=== PATIENT | male | born 1960 | race Caucasian/White ===

== ENCOUNTER → 2020-04-12 10:55 | Outpatient (CLI) | payer BC, SELFPAY | PROVIDERS: PCP Family Medicine | DX: Z11.59 Encounter for screening for other viral diseases (principal) | CPT/HCPCS: 87635; G2023; U0003 ==

== ENCOUNTER 2023-11-09 15:05 | Emergency (ER) | payer BC, SELFPAY ==
[2023-11-09 15:07] VITALS: BP 138/87; PULSE 88; RESP 14; TEMP 37.1; O2SAT 98; BMI 27.1
--- NOTE | 2023-11-09 15:39 | EDS_ITS ---
<Statement entered by Tasneem Perez MD - 11/09/23 22:18> . HPI <Iraida Valero RN - Last Filed: 11/09/23 22:21> History of Present Illness Chief Complaint: GI Bleed Informant: patient and spouse/S.O. Onset/Context/Timing Onset: Yesterday Context: Sudden Onset Timing: Continuous Narrative Narrative: Patient is a 63-year-old male who presented with his for black stools beginning last p.m. with 1 episode this a.m. patient with exploratory laparotomy left colectomy and omentectomy for colon cancer on October 29, 2023 at [facility]. Discharged November 05, 2023 patient reports diarrhea since surgery, contacted surgeon at [facility] regarding black stools and was referred to the local ED. Denies dizziness lightheadedness weaknes, nausea or vomiting. Denies pain. Prior similar symptoms: No Recent Illness/Hospitalization: Yes PFSH <Iraida Valero RN - Last Filed: 11/09/23 22:21> PFSH Medical History (Updated 11/09/23 @ 17:[address] Tasneem Perez MD) Cancer of descending colon High cholesterol Hypertension Neuropathy Allergy/AdvReac Type Severity Reaction Status Date / Time acetaminophen [From Percocet] Allergy Hives Verified 11/09/23 15:07 oxycodone [From Percocet] Allergy Hives Verified 11/09/23 15:07 Penicillins Allergy Hives Verified 11/09/23 15:07 Surgical History (Updated 11/09/23 @ 17:[address] Tasneem Preez MD) S/P left colectomy Social History Smoking Status: Never smoker ROS <Iraida Valero RN - Last Filed: 11/09/23 22:21> ROS ED Constitutional Constitutional ED: Reports other Details: Reports 13 pound weight loss since surgery. Reports increased appetite since yesterday. ; Denies chills, fever(s), subjective or sweats Cardiovascular Cardiovascular: Denies chest pain Respiratory/Chest Respiratory/Chest: Denies cough or dyspnea Gastrointestinal Gastrointestinal: Reports abdominal pain, diarrhea and melena; Denies nausea or vomiting <Dr. Tasneem Perez MD - Last Filed: 11/09/23 17:59> ROS ED Musculoskeletal Musculoskeletal: Denies back pain Neurologic Neurologic: Denies headache(s) Psychiatric Psychiatric: Denies anxiety or depression Allergic/Immunologic Allergic/Immunologic ED: Denies mouth swelling or tongue swelling EXAM <Iarida Valero RN - Last Filed: 11/09/23 22:21> Physical Exam Const Vital Signs: 11/09/23 15:07 11/09/23 17:47 Temperature 98.7 F Temperature Source Temporal Pulse Rate 88 74 Respiratory Rate 14 18 Blood Pressure 138/87 H Blood Pressure Mean 104 Pulse Ox 98 99 Oxygen Delivery Method Room Air Positive well nourished and well developed General Appearance ED: well developed HEENT Reports moist mucous membranes Neck no lymphadenopathy Chest Wall inspection of chest normal Chest: other Resp normal respiratory effort and clear to auscultation bilaterally Cardio regular rate and regular rhythm GI non-tender and non-distended Auscultation: normoactive bowel sounds Palpation: soft; Negative for tender Extremity normal to inspection Neuro oriented x3 and no sensory deficits noted Sensorium / Orientation: alert Motor Exam: strength 5/5 throughout Skin no wounds Skin Narrative: Midline abdominal incision with denice intact no redness, edema, or drainage noted General Skin Exam: elasticity normal <Dr. Tasneem Perez MD - Last Filed: 11/09/23 17:59> Physical Exam Const Vital Signs: 11/09/23 15:07 11/09/23 17:47 Temperature 98.7 F Temperature Source Temporal Pulse Rate 88 74 Respiratory Rate 14 18 Blood Pressure 138/87 H Blood Pressure Mean 104 Pulse Ox 98 99 Oxygen Delivery Method Room Air MDM <Iraida Valero RN - Last Filed: 11/09/23 22:21> MDM Lab Data Labs: Laboratory Results - last 24 hr 11/09/23 15:39 WBC 8.7 RBC 4.49 L Hgb 12.9 L Hct 38.0 L MCV 84.6 MCH 28.7 MCHC 33.9 RDW Std Deviation 39.6 RDW Coeff of Megan 12.9 Plt Count 439 MPV 8.6 Immature Gran % (Auto) 0.300 Neut % (Auto) 61.9 Lymph % (Auto) 21.8 Coos % (Auto) 5.8 Eos % (Auto) 8.5 H Baso % (Auto) 1.7 H Absolute Neuts (auto) 5.4 Absolute Lymphs (auto) 1.89 Nucleated RBC % 0 PT 13.4 INR 1.0 APTT 27.7 Sodium 140 Potassium 3.2 L Chloride 112 H Carbon Dioxide 23.0 Anion Gap 5 BUN 26 H Creatinine 0.77 Estim Creat Clear Calc 101.39 Est GFR (MDRD) Af Amer 131 Est GFR (MDRD) Non-Af 108 BUN/Creatinine Ratio 33.8 H Glucose 113 H Calcium 9.0 Radiography Diagnostic Testing: Clinical Impression(s) from Imaging Studies Abdomen/Pelvis CT 11/09/23 16:03 IMPRESSION: 1. Pneumoperitoneum likely related to recent surgery. 2. Distended loop of large bowel may represent postop ileus or an element of obstruction at the anastomosis. 3. Cholelithiasis. Electronically Signed: Juan David Viveros MD at 16:48 EST Reading Location ID and State: [address] [place] [address] Tel , Service support , Differential Diagnosis Abdominal Pain: Bowel obstruction <Dr. Tasneem Perez MD - Last Filed: 11/09/23 17:59> MDM MDM Narrative Medical decision making narrative: IV line initiated. Labwork obtained to evaluate for leukocytosis, anemia, and electrolyte derangement. CT scan of the abdomen pelvis with IV contrast obtained to evaluate for bowel obstruction or any complications at the anastomosis site. History & Record Review Discussion w/independent historian: Patient and Significant other Lab Data Attestation: I reviewed the patient's lab results. Labs: Laboratory Results - last 24 hr 11/09/23 15:39 WBC 8.7 RBC 4.49 L Hgb 12.9 L Hct 38.0 L MCV 84.6 MCH 28.7 MCHC 33.9 RDW Std Deviation 39.6 RDW Coeff of Megan 12.9 Plt Count 439 MPV 8.6 Immature Gran % (Auto) 0.300 Neut % (Auto) 61.9 Lymph % (Auto) 21.8 Coos % (Auto) 5.8 Eos % (Auto) 8.5 H Baso % (Auto) 1.7 H Absolute Neuts (auto) 5.4 Absolute Lymphs (auto) 1.89 Nucleated RBC % 0 PT 13.4 INR 1.0 APTT 27.7 Sodium 140 Potassium 3.2 L Chloride 112 H Carbon Dioxide 23.0 Anion Gap 5 BUN 26 H Creatinine 0.77 Estim Creat Clear Calc 101.39 Est GFR (MDRD) Af Amer 131 Est GFR (MDRD) Non-Af 108 BUN/Creatinine Ratio 33.8 H Glucose 113 H Calcium 9.0 Radiography Diagnostic Testing: Clinical Impression(s) from Imaging Studies Abdomen/Pelvis CT 11/09/23 16:03 IMPRESSION: 1. Pneumoperitoneum likely related to recent surgery. 2. Distended loop of large bowel may represent postop ileus or an element of obstruction at the anastomosis. 3. Cholelithiasis. Electronically Signed: Juan David Viveros MD at 16:48 EST , Treatment and Re-Evaluation :: CBC reveals normal white count 8.7. Hemoglobin is 12.9. On November 05 hemoglobin was 13.8. Coags unremarkable. Chemistry studies significant for slightly low potassium at 3.2. BUN is 26. Glucose is normal at 113. CT scan of the abdomen and pelvis shows pneumoperitoneum likely related to recent surgery. Distended loop of large bowel may represent a postop ileus or an element of obstruction at the anastomosis site. On repeat evaluation patient continues to rest comfortably. He states his upper bowel just recently started with good function over the last day or 2. I think he has a resolving ileus. He will closely monitor his symptoms and ensure that he is passing gas/stool. He is encouraged to return for any worsening symptoms or concerns. He has a follow-up with his surgeon next Sunday. Discharge Plan Triage Chief Complaint: GI Bleed ED Provider: Tasneem Perez Dx/Rx/DC Orders Clinical Impression: GI bleed Instructions: ED Lower GI Bleeding (Stable) Primary Care Provider: Faheem Mcbride Referrals: Faheem Mcbride MD [Primary Care Provider] - Activity Restrictions/Additional Instructions: As discussed, your blood counts are stable from your recent hospital admission. Your CT scan shows probable ileus from your recent surgery. Please ensure that you are continuing to pass gas and stool. Monitor for worsened bleeding. Please return for any concerns. Follow-up with your surgeon on Sunday as discussed. Disposition Disposition: Home, Self Care Discharge Date/Time: 11/09/23 17:49
[2023-11-09 15:44] LABS: Absolute Lymphocyte Count 1.89 X10^3/uL (0.83-4.51); Absolute Neutrophil Count 5.4 X10^3/uL (2.0-7.7); Basophil# 0.15 X10^3/uL; Basophil% 1.7 % (0-1); Eosinophil# 0.74 X10^3/uL; Eosinophils% 8.5 % (0-5); Hemoglobin 12.9 g/dL (13.0-16.5); Lymphocyte # 1.89 X10^3/ul (0.83-4.51); Lymphocyte % 21.8 % (19-41); Mean Corp Hgb Conc 33.9 g/dL (32-36); Mean Corpuscular Hgb 28.7 pg (27.0-32.0); Mean Corpuscular Volume 84.6 fL (80-94); Mean Platelet Vol. 8.6 fl (6.2-12.0); Monocyte% 5.8 % (0-10); NRBC Flagged by Analyzer 0 % (0-5); Neutrophil # 5.36 X10^3/uL (2.7-7.7); Neutrophil % 61.9 % (47-70); Platelet Count 439 K/mm3 (150-450); RBC Distribution Width CV 12.9 % (11.6-14.6); RBC Distribution Width SD 39.6 fl (35.1-43.9); Red Blood Count 4.49 M/mm3 (4.6-6.2); White Blood Count 8.7 K/mm3 (4.4-11.0)
[2023-11-09] MEDS: 0.9% Normal Saline (1000mL) 1,000 ML 150 ML IV (15:47)
[2023-11-09 15:58] LABS: Prothrombin Time (Protime)PT. 13.4 SECONDS (11.7-14.9)
[2023-11-09 15:59] LABS: Partial Thromboplast Time 27.7 Seconds (24.1-36.2)
[2023-11-09 16:03] LABS: Anion Gap 5 (5-15); BUN 26 mg/dL (7-18); BUN/Creat Ratio 33.8 RATIO (10-20); Chloride 112 mmol/L (98-107); Creatinine, Serum 0.77 mg/dL (0.70-1.30); EST Glomerular Filtration Rate 108 mL/min (>60); Est Glom Filt Rate - Afr Amer 131 mL/min (>60); Estimated Creatinine Clearance 101.39 ml/min; Glucose 113 mg/dL (74-106); Potassium 3.2 mmol/L (3.5-5.1); Sodium Level 140 mmol/L (136-145)
--- NOTE | 2023-11-09 16:03 | CT_ITS ---
EXAM: CT ABDOMEN AND PELVIS WITH INTRAVENOUS CONTRAST CLINICAL INDICATION: GI bleed, recent partial colectomy TECHNIQUE: Helically acquired images were obtained of the abdomen and pelvis with intravenous contrast. This CT exam was performed using one or more of the following dose reduction techniques: automated exposure control, adjustment of the mA and/or kV according to patient size, and/or use of iterative reconstruction technique. CONTRAST: IV 100mL Isovue-300 COMPARISON: No relevant prior studies available. FINDINGS: LOWER THORAX: Normal. Lung bases are clear. No cardiomegaly. No pericardial effusion. ABDOMEN: LIVER: Normal. Homogeneous. No focal mass. GALLBLADDER AND BILE DUCTS: Calcified stone present within the gallbladder. PANCREAS: Normal. No focal cystic or solid mass. SPLEEN: Normal. Normal size without focal cystic or solid mass. ADRENALS: Normal. No nodules. KIDNEYS AND URETERS: Small bilateral renal cysts. Normal renal size and position. No hydronephrosis. STOMACH AND BOWEL: Surgical anastomosis of the large bowel noted at the level of the distal descending colon. Large bowel proximal to the anastomosis is quite dilated which may be due to postop ileus or an element of obstruction. PELVIS: APPENDIX: See below. BLADDER: Normal. REPRODUCTIVE: Unremarkable as visualized. No mass. ABDOMEN and PELVIS: INTRAPERITONEAL SPACE: Pneumoperitoneum which presumably is related to recent partial colectomy. No ascites or other fluid collection. BONES/JOINTS: Bilateral L5 spondylolysis noted with grade 2 spondylolisthesis. Advanced disc degeneration at L5-S1 and to a lesser degree at L4-5. SOFT TISSUES: Normal. No discrete abdominal or pelvic wall hernia. VASCULATURE: Normal. Abdominal aorta is non-dilated. LYMPH NODES: Normal. No enlarged lymph nodes. CT/Abdomen/Pelvis W IV Cont ONLY IMPRESSION: 1. Pneumoperitoneum likely related to recent surgery. 2. Distended loop of large bowel may represent postop ileus or an element of obstruction at the anastomosis. 3. Cholelithiasis. Electronically Signed: Juan David Viveros MD at 16:48 EST ,
[2023-11-09 17:47] VITALS: PULSE 74; RESP 18; O2SAT 99
--- OUTSIDE RECORDS SUMMARY | 2023-11-09 18:00 | XMS RPT_ITS | CCD ---
Author Name Unknown Address [id number] [place] [address] Organization [facility] Care Team Providers Care Search Engine Optimization Analyst Name Role Phone DENIS SHANKS Admitting Unavailable DENIS SHANKS Attending Unavailable DENIS SHANKS Primary Care Unavailable FAHEEM MCBRIDE Unavailable PROVIDER, UNKNOWN Consulting Unavailable PROVIDER, UNKNOWN Consulting Unavailable PROVIDER, UNKNOWN Consulting Unavailable Faheem Mcbride MD Primary Care Provider Faheem Mcbride MD Primary Care Provider Faheem Mcbride MD Primary Care Provider FAHEEM MCBRIDE Primary Care Unavailable GIL, SHAFIA Attending Unavailable GIL, SHAFIA Referring Unavailable ARMANI HERRING Referring Unavailable GIL, SHAFIA Attending Unavailable BROWN, FAHEEM F Primary Care Unavailable BROWN, FAHEEM F Primary Care Unavailable SELF, SELF Referring Unavailable ARMANI HERRING Attending Unavailable BROWN, FAHEEM F Primary Care Unavailable ARMANI HERRING Attending Unavailable GIL, SHAFIA Referring Unavailable BROWN, FAHEEM F Primary Care Unavailable ARMANI HERRING Referring Unavailable ARMANI HERRING Attending Unavailable BROWN, FAHEEM F Referring Unavailable BROWN, FAHEEM F Primary Care Unavailable GIL, SHAFIA Attending Unavailable BROWN, FAHEEM F Primary Care Unavailable ABDI POTTER Attending Unavailable ARMANI HERRING Referring Unavailable BROWN, FAHEEM F Primary Care Unavailable ARMANI HERRING Attending Unavailable GIL, SHAFIA Referring Unavailable BROWN, FAHEEM F Primary Care Unavailable CARROLL HARKINS Attending Unavailable ARMANI HERRING Referring Unavailable BROWN, FAHEEM F Primary Care Unavailable ARMANI HERRING Referring Unavailable ARMANI HERRING Admitting Unavailable ARMANI HERRING Attending Unavailable HUI APONTE Attending Unavailable BROWN, FAHEEM F Primary Care Unavailable ARMANI HERRING Referring Unavailable FAHEEM MCBRIDE Primary Care Unavailable KEVIN BONNER Attending Unavailable KEVIN BONNER Referring Unavailable FAHEEM MCBRIDE Primary Care Unavailable KEVIN BONNER Attending Unavailable KEVIN BONNER Referring Unavailable Faheem Mcbride MD Unavailable [facility] Unavailable Mauricio BESS, Dr. Allison ([place] [facility]) A Unavail able Dr. Román Martínez MD Unavailable [phone] [facility] Unavailable Darryn ESCALANTE, Rossy Unavailable Unavailable [place] CRACKLING PRESS OPERATOR, Michelle Unavailable Nikolai CRACKLING PRESS OPERATOR, Perla Unavailable Unavailable Jh CRACKLING PRESS OPERATOR, Dede E Unavailable Unavailable Rivera CRACKLING PRESS OPERATOR, Mckenzie Unavailable Unavailable Brad, Maday C Unavailable Unavailable Stanislaw CRACKLING PRESS OPERATOR, Bebe Unavailable Unavailable Dany ESCALANTE, Tiara Thornton Unavailable Unavaila ble Jose CRACKLING PRESS OPERATOR, Aroldo Unavailable Unavailable Stack CRACKLING PRESS OPERATOR, Karlie Unavailable Unavailable Mutersbaugh CRACKLING PRESS OPERATOR, Keturah K Unavailable Unavai lable Camille CRACKLING PRESS OPERATOR, Kailee M Unavailable Unavailab le Adriano CRACKLING PRESS OPERATOR, Katharine Bond Unavailable Unavailab bulmaro Almaraz MA, Bebe Unavailable Unavailable Franerd CRACKLING PRESS OPERATOR, Tasneem Unavailable Unavaileyal Mosley CRACKLING PRESS OPERATOR, Odalis Marie Unavailable Unavaila ble Zaugg CRACKLING PRESS OPERATOR, Rosita Unavailable Unavailable Unavailable Unavailable Allergies Allergy Classification Reported Allergen(s) Allergy Type Date of Onset Reaction(s) Facility (1 source) Acetaminophen / oxyCODONE Drug Allergy [facility] (1 source) Penicillins Drug allergy (disorder) [facility] (18 sources) Acetaminophen / oxyCODONE Drug Allergy 5 [facility] (16 sources) Penicillins Propensity to adverse reactions to drug 5 [facility] (2 sources) Penicillin G Drug Allergy [facility] Medications Current Medications Medication Drug Class(es) Dates Sig (Normalized) Sig (Original) amLODIPine 10 mg oral tablet (18 sources) Dihydropyridine [employer] Zoe Start: 07-05-2023 take 1 tablet by mouth at bedtime Norvasc 10 mg tablet ; 1 Tablet at bedtime for 90 days Quantity: 90 {Tablet} Refills: 3 Ordered: 05-Jul-2023 MD Faheem Mcbride Start: 05-Jul-2023 atorvastatin 20 mg oral tablet (20 sources) HMG-CoA Reductase Inhibitor Start: 07-05-2023 atorvastatin 20 mg tablet ; 1 (one) Tablet qhs for 0 days Quantity: 90 {Tablet} Refills: 3 Ordered: 05-Jul-2023 MD Faheem Mcbride Start: 05-Jul-2023 Completed/Discontinued Medications Medication Drug Class(es) Dates Sig (Normalized) Sig (Original) aspirin 81 mg delayed release oral tablet (4 sources) Platelet Aggregation Inhibitor, Nonsteroidal Anti-inflammatory Drug take 1 tablet by mouth once daily Aspir-Low 81 MG Oral Tablet Delayed Release ; 1 daily (81 MG) Status: Inactive Problems Active Problems Problem Classification Problem Date Documented Da te Episodic/Chronic Allergic reactions (2 sources) Contact dermatitis; Translations: [Unspecified contact dermatitis, unspecified cause] 02-04-2019 Episodic Cancer of colon (20 sources) Malignant tumor of descending colon; Translations: [Malignant neoplasm of descending colon] Onset: 03-01-2018 Resolved: 11-13-2019 11-13-2018 Chronic Past or Other Problems Problem Classification Problem Date Documented Date Episodic/Chronic Cancer of colon (20 sources) History of malignant neoplasm of colon; Translations: [Personal history of other malignant neoplasm of large intestine] Onset: 11-12-2019 11-12-2019 Episodic Mood disorders (16 sources) Mood disorders Onset: 02-09-2021 Resolved: 07-31-2023 02-09-2021 Unclassified (2 sources) Well adult male - The patient feels well with no complaints, has good energy level and is sleeping well. The patient has a balanced diet. The patient exercises daily. The patient sleeps 6 hours per night. Note for Well adult male : reviewed by [facility] 01-04-2023 Unclassified (2 sources) Well adult male - The patient feels well with no complaints, has good energy level and is sleeping well. The patient has a balanced diet and takes no supplemental vitamins & iron. The patient exercises weekly (5-6 days). The patient sleeps 6 hours per night. Note for Well adult male : Has no concerns for today.Needs refills of Amlodipine and Atorvastatin reviewed by [facility] 12-29-2021 Unclassified (2 sources) Eye Symptoms - The onset of the eye symptoms has been acute and has been occurring in an increasing pattern for 1 month. The course has been worsening. The eye symptoms are described as moderate and involve the right eye (lower lid). The symptoms are described as pain. There has been no associated itching. Note for Eye symptoms : Has been using warm compresses. reviewed by [facility] 12-13-2021 Unclassified (2 sources) Well adult male - The patient feels well with no complaints, has good energy level and is sleeping well. The patient has a balanced diet and takes no supplemental vitamins & iron. The patient exercises weekly (5 times/weekly). The patient sleeps 6 hours per night. Note for Well adult male : Has no concerns for today. 12-24-2020 Unclassified (2 sources) Well Adult, male - The patient feels well with no complaints, has good energy level and is sleeping well. The patient has a balanced diet and takes no supplemental vitamins & iron. The patient exercises 3 - 4 times per week (walks/runs on treadmill). The patient sleeps 6 hours per night. Note for Well Adult, male : reviewed by [facility] 12-17-2019 Unclassified (2 sources) Erectile dysfunction - Note for Erectile dysfunction : Patient would like to discuss with Dr. Mcbride.Patient had body scan done recently for previous history of colon cancer. reviewed by [facility] 03-28-2019 Unclassified (2 sources) Rash - The onset of the rash has been acute and has been occurring in a persistent pattern for 1 day (started last evening). The course has been increasing. The rash is characterized as red. The rash was first seen on the lower extremity (both feet). There has been associated pain. Note for Rash : Has a couple of blisters on feet. No new exposures that he knows of . He did have a body scan yesterday as part of cancer work up and had some IV contrast. 02-04-2019 Unclassified (2 sources) Well adult male - The patient feels well with minor complaints (currently taking chemo medication, has two more weeks left.). The patient has a balanced diet and takes no supplemental vitamins & iron. The patient exercises weekly (4-5x/week). The patient sleeps 6 (6-7 hours a night) hours per night. Note for Well adult male : NICHO 06/28/2018States that he had recent cold, continues to have lingering cough. Would like refills today. reviewed by [facility] 11-08-2018 Unclassified (2 sources) Hypertension - The onset of the hypertension has been gradual. The hypertension has been occurring in a continuous pattern for 10 days. The course has been constant. The JNC classification is Stage 1 hypertension - 140-159 or 90-99 The symptoms include headache. Note for Hypertension : Pt started Chemo last week for colon cancer and after that BP has been elevated. 06-28-2018 Unclassified (2 sources) HTN/Cholesterol - Pt here for routine thn and cholesterol. Denies any chest pain , sob, or visual problems. States is doing well. Needs refill today. 07-29-2010 Results Test Name Value Interpretation Reference Range Facil ity Vital Signs Date Time Vital Sign Value Performing Clinician Faci lity 08-08-2023 08:54-0400 Body height 177.8 cm Armani Herring MD Work Phone: [facility] 08-08-2023 08:54-0400 Body mass index (BMI) [Ratio] 28.5 kg/m2 Armani Herring MD Work Phone: [facility] 08-08-2023 08:54-0400 Body temperature 98.29 [degF] Armani Herring MD Work Phone: [facility] 08-08-2023 08:54-0400 Body weight 90.08 kg Armani Herring MD Work Phone: [facility] 08-08-2023 08:54-0400 Diastolic blood pressure 72 mm[Hg] Armani Herring MD Work Phone: [facility] 08-08-2023 08:54-0400 Heart rate 82 /min Armani Herring MD Work Phone: [facility] 08-08-2023 08:54-0400 Respiratory rate 16 /min Armani Herring MD Work Phone: [facility] 08-08-2023 08:54-0400 SaO2% (BldA) [Mass fraction] 98 % Armani Herring MD Work Phone: [facility] Encounters Encounter Date Encounter Type Care Provider Facility Start: 11-07-2023 End: 11-07-2023 Telephone follow-up Faheem Mcbride MD Work Phone: [employer] Start: 10-29-2023 Evaluation and management of inpatient FAHEEM MCBRIDE Facility:[facility] Start: 08-08-2023 ambulatory FAHEEM MCBRIDE Facility: [facility] Start: 08-08-2023 End: 08-08-2023 Office outpatient visit 15 minutes Armani Herring MD Work Phone: Division of Colon & Rectal Surgery Procedures Date Procedure Procedure Detail Performing Clinician Start: 07-31-2023 Follow-up visit Follow-up ALEKSANDRA GIL Start: 07-26-2023 End: 07-26-2023 Screening for malignant neoplasm of large intestine Tiara Saenz RN Plan of Treatment Date Care Activity Detail Author Start: 09-12-2031 Tetanus vaccination TETANUS [facility] Start: 07-26-2025 Screening for malign ant neoplasm of colon COLONOSCOPY [facility] Start: 05-18-2024 Colonoscopy COLONOSCOPY [facility] Start: 05-18-2024 Screening for malign ant neoplasm of colon COLONOSCOPY [facility] Start: 01-16-2024 Patient encounter procedure Medical; PHYSICAL - AWV [facility]. Start: 16-Jan-2024 7:20 MD Faheem Mcbride Appointment Request [facility]. Start: 01-01-2024 Nursing evaluation o f patient and report Medical; Nurse visit - fasting labs - [facility] [employer] [facility] Start: 01-Jan-2024 8:20 NURSE, FLOAT Appointment Request [facility]. Start: 08-08-2023 End: 08-08-2023 Patient encounter procedure 08/08/2023 9:15 AM EDT Office Visit Division of Colon & Rectal Surgery [address] [place] [phone] Aramni Herring MD [address] [phone] Division of Colon & Rectal Surgery Start: 07-31-2023 End: 07-31-2023 Patient encounter procedure Division [facility] Surgery at [facility] Start: 07-26-2023 End: 07-26-2023 Patient encounter procedure 07/26/2023 12:30 PM EDT Appointment [facility] [address] [facility] [address] [place] [address] Armani Herring MD [address] [phone] [facility] Start: 07-13-2023 End: 07-13-2023 Patient encounter procedure 07/13/2023 11:20 AM EDT Office Visit Division of Medical Oncology [address] [phone] Aleksandra Gil MD [address] [place] [address] Division of Medical Oncology Start: 07-11-2023 End: 07-11-2023 Patient encounter procedure 07/11/2023 8:30 AM EDT Office Visit Division of Colon & Rectal Surgery [address] [phone] Armani Herring MD [address] [phone] Division of Colon & Rectal Surgery Start: 06-21-2023 End: 12-20-2023 CEA CEA Lab Routine Malignant neoplasm of ascending colon Expected: 06/21/2023, Expires: 12/20/2023 [facility] Immunizations Immunization Date Immunization Notes Care Provider Fa cility 07-05-2023 influenza, injectabl e, quadrivalent, preservative free Faheem Mcbride MD Work Phone: [facility] [employer] [employer] Payers Date Payer Category Payer Unknown [id number] 2017 Unknown [id number] 1960 Unknown [id number] 1960 Unknown [id number] 2.16. [id number] 1960 Unknown [id number] 2.16. [id number] 1960 Unknown [id number] 2.16. [id number] 1960 Unknown [id number] 2.16 [id number] 1960 Unknown [id number] 2.16. [id number] 1960 Unknown [id number] 2.16. [id number] 1960 Unknown [id number] 2.16. [id number] 1960 Unknown [id number] 2.16 [id number] 1960 Unknown [id number] 2.16. [id number] 1960 Unknown [id number] 2.16. [id number] 1960 Unknown [id number] 2.16. [id number] 1960 Unknown [id number] 2.16. [id number] 1960 Unknown [id number] 2.16. [id number] Social History Date Type Detail Facility Start: 02-05-2015 End: 06-19-2023 Tobacco smoking status NHIS Never smoked tobacco [facility] Start: 02-05-2015 End: 06-19-2023 Tobacco use and exposure Smokeless tobacco non-user [facility] Start: 08-24-2021 End: 08-08-2023 Alcohol intake Current drinker of alcohol (finding) [facility] Start: 08-24-2021 End: 07-31-2023 Alcohol intake [facility] Start: 08-23-2020 History SDOH Alcohol Frequency 2 [facility] Start: 11-12-2019 History SDOH Alcohol Comment socially [facility] Start: 11-12-2019 History SDOH Physica l Activity DPW 6 [facility] Start: 11-12-2019 End: 08-23-2020 History SDOH Physical Activity MPS 5 [facility] Start: 08-23-2020 History SDOH Food Worry 1 [facility] Start: 1960 Sex Assigned At Not on file [facility] Start: 12-09-2022 End: 12-19-2022 Exposure to SARS-CoV-2 (event) Not sure [facility] Start: 08-23-2020 End: 07-31-2023 Alcohol Use Disorder Identification Test - Consumption [AUDIT-C] [facility] How often to you hav e a drink containing alcohol? Monthly or less [facility] Average Number of Drinks Not on file [facility] (I/We) worried gavi er (my/our) food would run out before (I/we) got money to buy more. Never true [facility] Start: 01-30-2018 Gender identity Identifies as male gender (finding) [facility] Alcohol Use: Alcohol Use: ; Moderate alcohol use. [facility] Exercise History: Exercise Histo ry: ; Moderate. [facility] [employer] Tobacco Use: Tobacco Use: ; N ever smoker. [facility]. [facility]. Work Phone: Moderate [facility] [employer]. Work Phone: 6 x week [employer] [facility] [employer]. Work Phone: Moderate alcohol use [facility] [facility]; [employer]. Work Phone: Clinical Notes 02-22-2022 to 08-08-2023 Patient InstructionsJUANITA Mercado - 07/31/2023 1:00 PM Josafat Potter MD - 07/31/2023 1:00 PM JUANITA Cheung - 07/31/2023 10:20 AM EDTPatient Instructions Note Date & Type Note Facility 08-08-2023 Instructions Tasneem Bennett RN - 08/08/2023 9:15 AM EDT Pre-Operative Bowel Preparation [facility] 2022 A bowel prep is done to prepare the bowel for surgery or a procedure. Its purpose is to clear out the bowel of all solid matter. Please follow these instructions. Begin the bowel prep on the day before your scheduled surgery. Prescriptions will be sent to your pharmacy for: Dulcolax 20 mg (available over the counter) MiraLAX 238 g (available over the counter) Metronidazole or Erythromycin (if Metronidazole allergic) Neomycin On the day before your surgery: Drink only clear liquids. You should not have any solid food or milk products until after your surgery. Do not drink any liquids that are red, orange or purple in color. You may drink as much of these liquids as you like. In fact, the more you drink, the better your prep and the better your body will tolerate the prep. Also, continue drinking clear fluids after you finish the prep (until midnight) will make it easier to place your IV on the morning of surgery. These clear liquids are allowed: Water Strained fruit juices with no pulp Popsicles Ice Soft drinks Gatorade (Lemon [place]ai[place] preferred) Clear broth or bouillon Jell-O Coffee or tea with no milk or cream Mukund-Aid (no red, orange or purple) Begin the bowel prep: Plan ahead so that you will have a bathroom nearby. You may need to get to the toilet right away. You will have several bowel movements through the day. They will become very watery. The bowels are clear or clean when there is only pale-yellow fluid without flecks of stool. Please follow the steps as directed starting at 11 AM on the day before your surgery. The steps will clean your bowel for surgery and help protect against infection. You may only consume CLEAR LIQUIDS twenty-four (24) hours prior to surgery. STEP 1 - 11 AM: Take all 4, 5 mg Bisacodyl (Dulcolax) tablets (20 mg total in 1 single dose) STEP 2 - 11 AM: Pour the entire 8.3 oz (238 g) bottle of Polyethylene Glycol (MiraLAX) powder into a large 64-ounce bottle of sports drink like Gatorade or PowerAde that is not red, orange, or purple in color. Lemon-te-moak is preferred. You may need to pour out a cup of the drink from the bottle into a glass to make room before pouring the powder into the bottle. Shake well. Drink entire contents (60 oz.) over 2 hours. STEP 3 - 1 PM: Take 2 , 500 mg Metronidazole (Flagyl) tablets and 2 , 500 mg Neomycin tablets STEP 4 - 2 PM: Take 2 , 500 mg Metronidazole (Flagyl) tablets and 2 , 500 mg Neomycin tablets STEP 5 - 9 PM: Take 2 , 500 mg Metronidazole (Flagyl) tablets and 2 , 500 mg Neomycin tablets STEP 6 - Before Bedtime: Take a shower and wash your hair and body as usual. Turn off shower. Apply a generous amount of the Hibiclens (chlorhexidine) wash directly onto your skin (We will supply you with the soap prior to your surgery). Lather your body from the neck down. Pay special attention to the area where the surgery will be. Leave the wash on for 5 minutes then rinse well in the shower. Do not discard the Hibiclens (chlorhexidine) wash after showering. You will need to use the same bottle in the morning. Do NOT apply lotion or anything onto skin after showering. Put on clean clothes. STEP 7 - Before Bedtime: - Drink 1 bottle of Ensure Pre-Surgery Clear Nutritional drink. STEP 8- Morning of Surgery: Repeat STEP 6 above. Apply a generous amount of the Hibiclens (chlorhexidine) wash directly onto your skin. Lather your body from the neck down. Pay special attention to the area where the surgery will be. Leave the wash on for 5 minutes then rinse well in the shower. Do NOT apply lotion or anything onto skin after showering. Put on clean clothes. You will likely have extra Hibiclens (chlorhexidine) wash leftover that you may continue to use when you return home after surgery. STEP 9 - Morning of Surgery: - Drink the second bottle of Ensure Pre-Surgery Clear Nutritional drink on the way to the hospital prior to your procedure. STEP 10 - Please bring this form with you to your procedure. The morning of your surgery: Do not eat or drink anything other than the Preoperative Nutrition drink supplied by your doctor or doctor s office. If you are to take your morning medicines, take with small sips of water only. Bring all medicines you usually take (in the original containers) to the hospital with you. Follow any other instructions you were given to prepare for your surgery. If you have any questions, call your surgeon s office. Nothing to eat or drink (NPO) after midnight except for certain medications (See medication guidelines that were given to you during you pre-op visit) and the Ensure Pre-Surgery clear nutrition drink (see information below for directions on this drink before surgery). * You will be given 2 bottles of Ensure Pre-Surgery clear nutrition drink today to take prior to surgery. What is Ensure Pre-Surgery clear nutrition drink, and what does it do? Surgery creates unique nutrition needs for your body. Ensure Pre-Surgery is formulated for those needs with carbohydrates and antioxidants to help your body recover after surgery. What is the drink important? Your healthcare provider has recommended this specialized Ensure nutrition drink to help your body prepare for, and recover from, surgery. It's important that you follow your doctor's nutrition recommendations to help with recovery. Pre-Surgery Carbohydrate-Loading Drinks have been shown to help patient recovery: Reduced nausea and vomiting after surgery Reduced pain after surgery Reduced time in the hospital When should I drink Ensure Pre-Surgery? We recommend you drink 1 bottle the night before surgery and drink 1 bottle the morning of your surgery up to 2 hours before surgery. This should be consumed quickly (in less than 5 minutes, rather than sipped over time). You should not have anything to eat or drink after midnight before surgery except your doctor's approved medications with a sip of water and this Ensure Pre-Surgery clear nutrition drink that should be consumed in the morning of surgery and finish it no later than 2 hours prior to surgery time. You should have nothing to eat or drink at all 2 hours prior to your surgery. What is Ensure Enlive? As you continue to recover from surgery, add Ensure Enlive to your diet. Ensure Enlive is the only advanced nutrition shake that has an All-in-One blend with 20 grams of protein, HMB, fiber, vitamins and minerals. Ensure Enlive helps rebuild muscle for strength and energy during recovery from surgery. Ensure Enlive has been clinically shown to help significantly improve health outcomes. Patient who drank Ensure Enlive twice daily saw improvements in nutritional status, weight gain, and vitamin D levels. If you are diabetic, then we recommend Glucerna Shake Hunger Smart (10 fluid oz.) instead of Ensure Enlive We are providing you with 2 bottles of Ensure Enlive (or Glucerna if you are diabetic) as a sample for you to use. This is available at all major retailers. Our recommendation is to use a nutritional supplement for 14 days before and 14 days after surgery as part of a healthy diet. This time frame before surgery is a general guideline. Please note: This is a general guideline. The time frame before surgery may be shorter if your surgery is scheduled sooner than 14 days. Please be aware that the Ensure Enlive is different than the Ensure Pre-Surgery Clear Nutrition Drink. Ensure Enlive should not be drank the morning of surgery. This should be consumed when recovering from your surgery. Exercise and Improve Your Strength Before Surgery Being in good physical shape can help you recover from surgery more quickly and with fewer problems. The stronger you are before surgery, the easier things will be for you after surgery. Exercise 30 minutes each day most days of the week. Walking in your neighborhood or on a treadmill, riding a bike, and strength training using light weights are all good options. Try to increase the amount of time or how hard you are exercising every few days to build up your strength and stamina. If you have a regular exercise routine most days of the week, stay with it until your surgery. Your surgeon may have you see a physical therapist (PT) before your surgery if you are not very active or you are weak. Stop Tobacco Use If you smoke or use other tobacco products you need to stop 4 weeks before the surgery. You also need to avoid tobacco use for up to 8 weeks after surgery to help your wound healing. Talk to your doctor about a smoking cessation program. You can also get help through: [facility], [place] Quit Line, [employer], [employer], Smokefree.gov website Stop Alcohol Use If you drink alcohol you will need to stop drinking 4 weeks before the surgery to reduce your risk of problems after surgery. Avoid alcohol up to 8 weeks after your surgery to help reduce your risk of infection and to help your wound heal more quickly. Talk to your doctor if you need help to stop alcohol use. You may also find these resources helpful:Alcoholics Anonymous (AA) http://www.aa.org/ Rethinking Drinking https://www.rethinkingdrinking.n [facility] hospitala.nih.gov/ National [place] of Alcohol Abuse and Alcoholism https://niaaa.nih.gov/ Bowman Albarran 368-672-1064 -Inpatient, partial hospitalization and outpatient services for teens or adults and their families, as well as educational programs are offered. PREOPERATIVE PAIN MANAGEMENT Most people can have some pain after surgery. Good pain control helps you feel comfortable so you can take deep breaths, walk and sleep better. This can help lower the risk of complications such as pneumonia or blood clots after surgery. Pain control starts before surgery Your doctor may prescribe medicine to help control your pain. Medications that you may be given before surgery include: Acetaminophen (Tylenol) Oxycodone Gabapentin Other types of medications that you may be given include anti-anxiety and anti-nausea medicines. Taking your pain medicine as ordered by your doctor will bring you the most relief as your body heals. Pain Relief Procedures In addition to medications, your surgeon and/or anesthesiologist may recommend a pain relieving procedure that will be done before you go into the operating room. Spinal Spinal analgesia is a procedure that can provide substantial pain relief after surgery. After cleaning and numbing the skin, a needle is advanced to the intrathecal space (it does not go into your spinal cord). After the needle is in the correct place, pain relieving medication is injected and then the needle is removed. Rare side effects from intrathecal injection may include: headaches, numbness or tingling in the lower legs, back soreness, bleeding, allergic reaction or infection. Epidural Epidural analgesia is another way to give pain medicine after surgery. A very thin plastic tube called an epidural catheter is placed in your back just before surgery. A small pump that delivers numbing medication is attached to the epidural catheter. The catheter is taped to your back and you will be able to move around in bed or walk. The epidural can stay in until 24-48 hours before discharge from the hospital. Rare side effects from an epidural may include: headaches, bleeding, allergic reaction or infection. Alternative Pain Relief Options If the previously mentioned pain relief procedures are not best for you, do not worry, there are alternative options to provide pain relief after surgery. Patient Controlled Analgesia (also known as a SUGAR CANE PLANTING EQUIPMENT OPERATOR) A SUGAR CANE PLANTING EQUIPMENT OPERATOR is a pain pump that could be used to help control pain. The pain medicine is ordered by your doctor. The pump is connected to your IV line and you can push a button when you have pain. This will give a small amount of pain medicine into your blood stream. You should be the only person to push the button. Your nurse will give you further instructions about this pump. Pain control without medication Many patients find that using non-drug therapy for pain control brings them additional relief. Options include, but are not limited to: Relaxation Exercise or movement Distraction, such as reading, watching a movie or lindsey Aromatherapy Heat or cold therapy (limit time of use) Talk to a staff member to learn more. documented in this encounter [facility] 07-31-2023 History of Presen t illness Narrative CC Right cystic renal mass HPI Maury Wagner is a 63 y.o. male with history of HTN, hyperlipidemia, stage IIIB colon cancer s/p resection (2018) and chemo with recent recurrence planned for resection. He is referred for evaluation of a cystic right renal mass seen on surveillance imaging. Patient has history of invasive adenocarcinoma of colon diagnosed in 2018, s/p laparoscopic L hemicolectomy 04/09/[address] Herring, pathology showed moderately differentiated adenocarcinoma w mucinous features, 4.8 cm with extension through muscularis propria, negative margins, 3/9 nodes positive. He completed adjuvant chemo with Xeloda in 2019. He has been on surveillance since then. CT A/P 06/05/22 incidentally showed a 1.2 cm x 1.6 cm cystic lesion in right lower pole kidney with progressive thickening of internal septation. CT A/P w/ contrast 06/06/23 showed the complex renal lesion measuring 1.7 cm x 1.7 cm with irregularly thickened internal septations. CT CAP 06/06/23 demonstrates new soft tissue nodule superior medial to the anastomosis site concerning for recurrence. Colonoscopy 07/26/23 showed patent anastomosis in descending colon, with edema and submucosal mass compatible with the area of recurrence on imaging. Planned for re-resection. Referred by Dr. Herring for possible partial nephrectomy at time of surgery. Denies LUTS, GH. Denies f/c, n/v, cough, SOB, RODRIGUEZ, dizziness, bone pain. Normal bowel habits. Energy and appetite are good. Past history is negative for BPH, frequent UTIs, stones, or other renal diseases. Denies any cardiac history Family history of cancers - MGF had prostate cancer, no treatment and from other causes age 89.Paternal uncle from colon cancer. ECOG Performance Status Performance status: Karnofsky scale 100 (ECOG grade 0) No limitations Past Medical History He has a past medical history of BPH (benign prostatic hyperplasia), Colon adenocarcinoma (04/2018), Colon polyp (January 2015), Diverticulosis, Essential hypertension, benign, Hepatic steatosis, and Hyperlipidemia. Past Surgical History He has a past surgical history that includes colonoscopy diagnostic (January 2015); rotator cuff repair (Left, 2009); sinus surgery (1989); arm surgery (Left, 1968); sigmoidoscopy flexible for colorectal cancer screening (N/A, 02/11/2015); sigmoidoscopy flexible for colorectal cancer screening (N/A, 03/02/2016); knee replacement (Right); colonoscopy for colorectal cancer screening high risk individual (N/A, 02/14/2018); colectomy partial laparoscopic (N/A, 04/09/2018); colonoscopy for colorectal cancer screening high risk individual (N/A, 05/01/2019); lipoma resection (07/23/2019); and colonoscopy for colorectal cancer screening high risk individual (N/A, 04/15/2020). Medications He has a current medication list which includes the following prescription(s): amlodipine, atorvastatin, and lisinopril. Allergies He is allergic to penicillins and percocet [oxycodone-acetaminophen]. Social History He reports that he has never smoked. He has never used smokeless tobacco. He reports current alcohol use. He reports that he does not use drugs. Family History He family history includes Colorectal Cancer in his paternal uncle; Colorectal Polyps in his father; Prostate Cancer (age of onset: 89) in his maternal grandfather. Review of Systems Constitutional: Negative for fever, chills, weight loss, weight gain and malaise/fatigue. Cardiovascular: Negative for chest pain. Respiratory: Negative for shortness of breath. Gastrointestinal: Negative for nausea, abdominal pain, diarrhea, constipation. Genitourinary: see HPI Musculoskeletal: Negative for back pain and joint pain. Neurological: Negative for dizziness and headaches. Psychiatric: No depression or anxiety. Integumentary: No rashes Physical Exam Smoking Status Never There is no height or weight on file to calculate BMI. Constitutional: A&Ox3, well-developed, well-nourished, and in no acute distress. HEENT: Normocephalic. Atraumatic. Moist mucus membranes. Cardiovascular: Regular rate Pulmonary/Chest: Respirations are even and non-labored bilaterally. Abdominal: Soft, nondistended, nontender. No masses. No CVA tenderness. Neck: No cervical adenopathy. Neurological: Cranial Nerves II-XII grossly intact. Normal gait. Extremities: RIKKI x4, normal strength. No edema. Warm. No clubbing or cyanosis. Skin: [place], warm, and dry. No rashes noted. Diagnostic Tests 12/30/22 PSA 1.32 Lab Results Component Value Date WBC 6.30 06/19/2023 HGB 15.8 06/19/2023 HCT 47.1 06/19/2023 PLATELET 326 06/19/2023 MCV 88.4 06/19/2023 Lab Results Component Value Date SODIUM 137 06/19/2023 SODIUM 139 02/12/2019 POTASSIUM 4.0 06/19/2023 POTASSIUM 4.1 02/12/2019 CHLORIDE 103 06/19/2023 CHLORIDE 101 02/12/2019 CO2 27 06/19/2023 CO2 30 02/12/2019 BUN 16 06/19/2023 BUN 15 02/12/2019 CREATSERUM 0.96 06/19/2023 CREATSERUM 0.72 06/06/2023 CREATSERUM 0.96 02/12/2019 CREATSERUM 1.19 02/03/2019 Lab Results Component Value Date GLUCOSE 98 06/19/[address] A/P w/ contrast 06/06/23 1. Status post left hemicolectomy. Superior medial to the anastomosis site in the left mid abdomen there is a soft tissue nodule concerning for recurrence of neoplasm/metastatic disease. 2. Lesion in the inferior pole cortex of the right kidney has irregularly thickened internal septations and has slowly increased in size over multiple comparison studies, concerning for primary renal neoplasm. 3. No evidence of solid organ metastatic disease in the abdomen/pelvis. 4. No abdominopelvic lymphadenopathy identified by pathologic size criteria. 5. Prostatomegaly. CT Chest w/ contrast 06/06/23 Stable examination, with no evidence of intrathoracic metastatic disease. CT A/P w/ contrast 06/05/22 1. Postsurgical changes related to partial left hemicolectomy without evidence of locally recurrent disease. 2. No evidence of solid organ intra-abdominal metastatic disease. 3. No interval abdominal or pelvic lymphadenopathy by size criteria. 4. Bilateral renal cysts with a 1.6 cm cystic lesion in the right lower pole containing a thickened internal septation, increasing conspicuity from prior exam. Consider further characterization with dedicated renal mass MRI or contrast-enhanced ultrasound. The previously demonstrated right lower pole exophytic renal lesion is decreased in size from prior exam. 5. Cholelithiasis. Assessment Maury Wagner is a 63 y.o. male who presents for evaluation of a 1.7 cm right cystic renal mass seen on surveillance imaging for his colon cancer. He is s/p colon resection in 2018 and chemo completed 2019, with concern for recurrence at anastomosis, pending re-resection. I had detailed discussion with the patient regarding the nature of renal masses. I informed the patient that suspicious renal masses are malignant in 75-80% of cases and thus have a 20-25% chance of being benign. The treatment options were discussed and include active surveillance, tumor ablation with needle-base therapy using either cryo ablation or radiofrequency ablation and surgical removal. We also discussed the fact that renal cell carcinoma is generally considered a surgical disease. All of the patient's questions were answered in detail. Plan - JUANITA Mercado I completed an independent history and physical on this patient. The case was discussed with Dr. Potter. He performed the medical decision making for this encounter. CC Right cystic renal mass HPI Maury Wagner is a 63 y.o. male with history of HTN, hyperlipidemia, stage IIIB colon cancer s/p resection (2018) and chemo with recent recurrence planned for resection. He is referred for evaluation of a cystic right renal mass seen on surveillance imaging. Patient has history of invasive adenocarcinoma of colon diagnosed in 2018, s/p laparoscopic L hemicolectomy 04/09/[address] Herring, pathology showed moderately differentiated adenocarcinoma w mucinous features, 4.8 cm with extension through muscularis propria, negative margins, 3/9 nodes positive. He completed adjuvant chemo with Xeloda in 2019. He has been on surveillance since then. CT A/P 06/05/22 incidentally showed a 1.2 cm x 1.6 cm cystic lesion in right lower pole kidney with progressive thickening of internal septation. CT A/P w/ contrast 06/06/23 showed the complex renal lesion measuring 1.7 cm x 1.7 cm with irregularly thickened internal septations. CT CAP 06/06/23 demonstrates new soft tissue nodule superior medial to the anastomosis site concerning for recurrence. Colonoscopy 07/26/23 showed patent anastomosis in descending colon, with edema and submucosal mass compatible with the area of recurrence on imaging. Planned for re-resection. Referred by Dr. Herring for possible partial nephrectomy at time of surgery. Denies LUTS, GH. Denies f/c, n/v, cough, SOB, RODRIGUEZ, dizziness, bone pain. Normal bowel habits. Energy and appetite are good. Past history is negative for BPH, frequent UTIs, stones, or other renal diseases. Denies any cardiac history Family history of cancers - MGF had prostate cancer, no treatment and from other causes age 89.Paternal uncle from colon cancer. ECOG Performance Status Performance status: Karnofsky scale 100 (ECOG grade 0) No limitations Past Medical History He has a past medical history of BPH (benign prostatic hyperplasia), Colon adenocarcinoma (04/2018), Colon polyp (01/2015), Diverticulosis, Essential hypertension, benign, and Hyperlipidemia. Past Surgical History He has a past surgical history that includes colonoscopy diagnostic (01/2015); rotator cuff repair (Left, 2009); sinus surgery (1989); arm surgery (Left, 1968); sigmoidoscopy flexible for colorectal cancer screening (N/A, 02/11/2015); sigmoidoscopy flexible for colorectal cancer screening (N/A, 03/02/2016); knee replacement (Right); colonoscopy for colorectal cancer screening high risk individual (N/A, 02/14/2018); colectomy partial laparoscopic (N/A, 04/09/2018); colonoscopy for colorectal cancer screening high risk individual (N/A, 05/01/2019); lipoma resection (07/23/2019); colonoscopy for colorectal cancer screening high risk individual (N/A, 04/15/2020); and colonoscopy diagnostic (07/26/2023). Medications He has a current medication list which includes the following prescription(s): amlodipine, atorvastatin, and lisinopril. Allergies He is allergic to penicillins and percocet [oxycodone-acetaminophen]. Social History He reports that he has never smoked. He has never used smokeless tobacco. He reports current alcohol use. He reports that he does not use drugs. Family History He family history includes Colorectal Cancer in his paternal uncle; Colorectal Polyps in his father; Prostate Cancer (age of onset: 89) in his maternal grandfather; Skin Cancer in his sister. Review of Systems Constitutional: Negative for fever, chills, weight loss, weight gain and malaise/fatigue. Cardiovascular: Negative for chest pain. Respiratory: Negative for shortness of breath. Gastrointestinal: Negative for nausea, abdominal pain, diarrhea, constipation. Genitourinary: see HPI Musculoskeletal: Negative for back pain and joint pain. Neurological: Negative for dizziness and headaches. Psychiatric: No depression or anxiety. Integumentary: No rashes Physical Exam BP 131/80 Pulse 91 Temp 97.4 F (36.3 C) Resp 16 Ht 1.778 m (5' 10 ) Wt 90.4 kg (199 lb 3.2 oz) SpO2 95% BMI 28.58 kg/m Smoking Status Never Body mass index is 28.58 kg/m . Constitutional: A&Ox3, well-developed, well-nourished, and in no acute distress. HEENT: Normocephalic. Atraumatic. Moist mucus membranes. Cardiovascular: Regular rate Pulmonary/Chest: Respirations are even and non-labored bilaterally. Abdominal: Soft, nondistended, nontender. No masses. No CVA tenderness. Neck: No cervical adenopathy. Neurological: Cranial Nerves II-XII grossly intact. Normal gait. Extremities: RIKKI x4, normal strength. No edema. Warm. No clubbing or cyanosis. Skin: [place], warm, and dry. No rashes noted. Diagnostic Tests 12/30/22 PSA 1.32 Lab Results Component Value Date WBC 6.30 06/19/2023 HGB 15.8 06/19/2023 HCT 47.1 06/19/2023 PLATELET 326 06/19/2023 MCV 88.4 06/19/2023 Lab Results Component Value Date SODIUM 137 06/19/2023 SODIUM 139 02/12/2019 POTASSIUM 4.0 06/19/2023 POTASSIUM 4.1 02/12/2019 CHLORIDE 103 06/19/2023 CHLORIDE 101 02/12/2019 CO2 27 06/19/2023 CO2 30 02/12/2019 BUN 16 06/19/2023 BUN 15 02/12/2019 CREATSERUM 0.96 06/19/2023 CREATSERUM 0.72 06/06/2023 CREATSERUM 0.96 02/12/2019 CREATSERUM 1.19 02/03/2019 Lab Results Component Value Date GLUCOSE 98 06/19/[address] A/P w/ contrast 06/06/23 1. Status post left hemicolectomy. Superior medial to the anastomosis site in the left mid abdomen there is a soft tissue nodule concerning for recurrence of neoplasm/metastatic disease. 2. Lesion in the inferior pole cortex of the right kidney has irregularly thickened internal septations and has slowly increased in size over multiple comparison studies, concerning for primary renal neoplasm. 3. No evidence of solid organ metastatic disease in the abdomen/pelvis. 4. No abdominopelvic lymphadenopathy identified by pathologic size criteria. 5. Prostatomegaly. CT Chest w/ contrast 06/06/23 Stable examination, with no evidence of intrathoracic metastatic disease. CT A/P w/ contrast 06/05/22 1. Postsurgical changes related to partial left hemicolectomy without evidence of locally recurrent disease. 2. No evidence of solid organ intra-abdominal metastatic disease. 3. No interval abdominal or pelvic lymphadenopathy by size criteria. 4. Bilateral renal cysts with a 1.6 cm cystic lesion in the right lower pole containing a thickened internal septation, increasing conspicuity from prior exam. Consider further characterization with dedicated renal mass MRI or contrast-enhanced ultrasound. The previously demonstrated right lower pole exophytic renal lesion is decreased in size from prior exam. 5. Cholelithiasis. Assessment Maury Wagner is a 63 y.o. male who presents for evaluation of a 1.7 cm right cystic renal mass seen on surveillance imaging for his colon cancer. He is s/p colon resection in 2018 and chemo completed 2019, with concern for recurrence at anastomosis, pending re-resection. I reviewed his scans and records. Informed the patient that he has bilateral renal lesions, most of them are small and most likely simple cyst. The lesion on the right interpolar posterior side is growing and more complex. I explained to the patient that renal cysts are very common and they result from genetic or nongenetic processes, and occur in a variety of diseases in adults and children. Some of the genetic causes of renal cysts are polycystic kidney disease, Medullary sponge kidney. von Hippel-Lindau disease and tuberous sclerosis. Acquired renal cysts with end-stage renal disease after several years of dialysis, particularly hemodialysis. And simple renal cysts are commonly observed in normal kidneys, with an increasing incidence in older people. They are usually benign asymptomatic lesions that rarely require any treatment. I informed the patient that it is important to distinguish simple renal cysts from complex renal cysts that may harbor cancer cells. This is usually done by performing renal ultrasound, CT scan of MRI of the kidneys. Further study may or may not be required, and some complex lesions that cannot be determined to be simple cysts may require surgical excision for diagnosis. I briefly described the Bosniak classification of renal cysts. The Bosniak classification, which is above, is designed to help your doctor predict the chances that your complex renal cyst is associated with a kidney cancer. Bosniak category I complex kidney cysts have a less than 2% chance of being associated with a kidney cancer. Bosniak category II and III complex kidney cysts are associated with an approximately 18% and 33% chance of being associated with kidney cancer respectively. The majority (92%) of Bosniak IV complex kidney cysts are associated with kidney cancers. The patient has Bosniak class IV I explained that the surgery takes around 2-4 hours and usually patients stay in the hospital 1-2 days. All possible complications were discussed such as and not only, infection, bleeding, injury to adjacent organs (such as bowel, kidney, pancrease, liver) scrotal pain in males, lymphocele, hernia, renal failure, urinary leakage, cardiovascular and pulmonary complication and even . All patients questions were answered Plan Will be happy to do his surgery at the same time or on a different time. Depends on how the surgery will go, can do this robotically or open right partial nephrectomy. He is meeting with Dr Herring to discuss next step. I saw and evaluated the patient with Lilian Somers. I provided a substantive portion of the care for this patient. Including history and physical examination, reviewing of the medical records, laboratory and radiology tests. I personally performed all aspects of the medical decision making for this encounter. I have reviewed and verified this documentation and it accurately reflects our care. documented in this encounter [facility] 07-31-2023 History of Presen t illness Narrative GI MEDICAL ONCOLOGY CLINIC NOTE Attending: Dr. Aleksandra Gil Visit Date: 07/31/2023 Chief Complaint: Follow up visit for history of L colon adenocarcinoma, diagnosed 02/2018 Oncologic History: 63 y.o. M with hx of HTN, HLD, colon polyps and subsequent diagnosis of stage IIIB colon cancer. Pt had a colon polyp with adenocarcinoma in 2014. On surveillance colonoscopy 02/14/[address] Herring, he had a mass at the splenic flexure. Biopsy showed invasive adenocarcinoma. Staging CT scans w/o metastatic disease. Underwent laparoscopic L hemicolectomy on 04/09/[address] Herring. Pathology showed moderately differentiated adenocarcinoma w mucinous features, 4.8 cm with extension through muscularis propria, negative margins, (+) LVI, (+) PNI, 3/9 nodes positive, 3 tumor deposits noted, ALBARO. Pt began adjuvant Xelox on 06/19/18 and then transitioned into single agent Xeloda with C5D1 (09/10/18). He completed 4 cycles (3-month) therapy of single agent xeloda in 2018. Pt has been on surveillance since then. Interval History: He presents today for surveillance visit with labs. He is doing well with good levels of energy and appetite. No new complaints. He denies any issues with nausea, vomiting, diarrhea, constipation, fever, chills, melena, hematochezia, SOB, or new/increasing pain. Medical/Surgical History: Past Medical History: Diagnosis Date BPH (benign prostatic hyperplasia) Colon adenocarcinoma 04/2018 Stage IIIB s/p L hemicolectomy Colon polyp January 2015 Diverticulosis Essential hypertension, benign Hepatic steatosis Hyperlipidemia Past Surgical History: Procedure Laterality Date COLONOSCOPY DIAGNOSTIC 07/26/2023 COLONOSCOPY FOR COLORECTAL CANCER SCREENING HIGH RISK INDIVIDUAL N/A 04/15/2020 Laterality: N/A; Surgeon: Armani Herring MD; Location: [facility] LIPOMA RESECTION 07/23/2019 Upper back soft tissue mass - lipoma removed by Dr. Shanks at [facility] COLONOSCOPY FOR COLORECTAL CANCER SCREENING HIGH RISK INDIVIDUAL N/A 05/01/2019 Laterality: N/A; Surgeon: Armani Herring MD; Location: [facility] COLECTOMY PARTIAL LAPAROSCOPIC N/A 04/09/2018 Laterality: N/A; Surgeon: Armani Herring MD; Location: [facility] COLONOSCOPY FOR COLORECTAL CANCER SCREENING HIGH RISK INDIVIDUAL N/A 02/14/2018 Laterality: N/A; Surgeon: Armani Herring MD; Location: [facility] SIGMOIDOSCOPY FLEXIBLE FOR COLORECTAL CANCER SCREENING N/A 03/02/2016 Laterality: N/A; Surgeon: Armani Herring MD; Location: [facility] SIGMOIDOSCOPY FLEXIBLE FOR COLORECTAL CANCER SCREENING N/A 02/11/2015 Laterality: N/A; Surgeon: Armani Herring MD; Location: [facility] COLONOSCOPY DIAGNOSTIC 01/2015 ROTATOR CUFF REPAIR Left 2010 SINUS SURGERY 1990 ARM SURGERY Left 1969 KNEE REPLACEMENT Right Family History: Family History Problem Relation Age of Onset Colorectal Polyps Father murdered by spouse Colorectal Cancer Paternal Uncle Prostate Cancer Maternal Grandfather 89 Social History: Social History Socioeconomic History Marital status: Tobacco Use Smoking status: Never Smokeless tobacco: Never Vaping Use Vaping Use: Never used Substance and Sexual Activity Alcohol use: Yes Comment: socially Drug use: No Sexual activity: Yes Partners: Female control/protection: None Other Topics Concern Occupational Exposure No Hobby Hazards No Social History Narrative 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 . Social Determinants of Health Financial Resource Strain: Low Risk (08/23/2020) Overall Financial Resource Strain (CARDIA) Difficulty of Paying Living Expenses: Not hard at all Food Insecurity: No Food Insecurity (08/23/2020) Hunger Vital Sign Worried About Running Out of Food in the Last Year: Never true Ran Out of Food in the Last Year: Never true Physical Activity: Sufficiently Active (11/12/2019) Exercise Vital Sign Days of Exercise per Week: 6 days Minutes of Exercise per Session: 50 min Review of Systems: Pertinent items are noted in interval history, all other systems were queried and are negative. Past medical, surgical, family, and social histories as well as medications and allergies were all reviewed per RN charting in EMR. Physical Exam: Vitals: 07/31/23 1058 BP: 120/84 Pulse: 84 Resp: 16 Temp: 97.6 degrees F (36.4 degrees C) TempSrc: Oral SpO2: 95% Weight: 89.6 kg (197 lb 9.6 oz) Height: 1.78 m (5' 10.08 ) Wt Readings from Last 3 Encounters: 07/31/23 89.6 kg (197 lb 9.6 oz) 07/11/23 88.9 kg (196 lb) 06/19/23 89.9 kg (198 lb 4.8 oz) Patient's Current Performance Status 0 APPEARANCE: Alert and oriented, in no acute distress. HEENT: Head atraumatic, normocephalic. EYES: Nonicteric. NECK: Supple. RESPIRATORY: Lungs are clear to auscultation bilaterally. CARDIOVASCULAR: Heart rate and rhythm regular. No peripheral edema. ABDOMEN: Soft, nontender, non-distended. LYMPHATICS: No cervical, supraclavicular, infraclavicular lymphadenopathy appreciated. MUSCULOSKELETAL: no gross deficits. NEUROLOGIC: No focal deficits. SKIN: Without jaundice; pink, warm and dry; good skin turgor. No rash noted. PSYCH: pleasant affect, appropriate for age and clinical situation. Laboratory data: Lab Results Component Value Date WBC 6.30 06/19/2023 HGB 15.8 06/19/2023 HCT 47.1 06/19/2023 PLATELET 326 06/19/2023 MCV 88.4 06/19/2023 Lab Results Component Value Date SODIUM 137 06/19/2023 POTASSIUM 4.0 06/19/2023 CHLORIDE 103 06/19/2023 CO2 27 06/19/2023 BUN 16 06/19/2023 CREATSERUM 0.96 06/19/2023 Lab Results Component Value Date ALT 32 06/19/2023 AST 27 06/19/2023 ALKPHOS 52 06/19/2023 BILITOTAL 1.0 06/19/2023 BILIDIRECT 0.2 11/13/2018 Lab Results Component Value Date CEA 2.3 06/19/2023 Most Recent Imagin06/06/23 CT CAP 1. Status post left hemicolectomy. Superior medial to the anastomosis site in the left mid abdomen there is a soft tissue nodule concerning for recurrence of neoplasm/metastatic disease. 2. Lesion in the inferior pole cortex of the right kidney has irregularly thickened internal septations and has slowly increased in size over multiple comparison studies, concerning for primary renal neoplasm. 3. No evidence of solid organ metastatic disease in the abdomen/pelvis. 4. No abdominopelvic lymphadenopathy identified by pathologic size criteria. 5. Prostatomegaly. 6. Stable examination, with no evidence of intrathoracic metastatic disease. Pathology 04/09/18: ---Final Pathologic Diagnosis--- A. Left colon, excision: - Moderately differentiated adenocarcinoma, 4.8 cm, with mucinous features, arising in the left colon - All margins uninvolved (closest margin = 1.4 cm to the radial margin) - Background high-grade dysplasia/intramucosal carcinoma and dystrophic calcifications - Adenocarcinoma extends through the muscularis propria - Lymphovascular and perineural invasion identified - Three of nine lymph nodes involved by metastasis (3/9); extra-joel extension identified - Tumor deposits = 3 - Background colon with diverticular disease - Additional sections submitted SYNOPTIC REPORT FOR CARCINOMA OF THE COLON AND RECTUM: Procedure: Left colon resection Tumor site: Left colon Gross tumor configuration: Exophytic Tumor size: 4.8 cm Histologic type: Adenocarcinoma Histologic grade: G2: Moderately-differentiated Tumor Extension: Tumor extends through the muscularis propria into the pericolic colorectal fat Macroscopic perforation: Not identified Obstruction: Not reported Tumor borders: Infiltrative Lymphatic/vascular invasion: Identified Perineural invasion: Identified Margins: All involved; closest margin = 1.4 cm to the radial margin; adenocarcinoma 4.9 cm to the closest longitudinal margin and 9.0 cm to the opposite longitudinal margin Lymph nodes: Number examined: 9 Number positive: 3 Extranodal extension: Present Tumor deposits (Discontinuous extramural extension): Number present: 3 Tumor budding: Number of tumor buds in 1 hotspot field (per 0.785 mm2 area): 7.4 (TB=single cells or small clusters less than 5 cells at tumor invasive front; If eyepiece FN=22, divide # of TB in one hotspot 20x field by 1.210 to get 0.785 mm2 area) Score (by H&E evaluation): Intermediate score [5-9 buds] Treatment Effect: No known presurgical therapy Macroscopic intactness of mesorectum: Not applicable Tumor best seen on block(s): A4-7 Normal best seen on block(s): A1-2 pTNM: pT3 N1b Mismatch Repair Protein (MMR) Nuclear Expression by IHC: (present/intact or absent/lost) MLH1: Intact/present PMS2: Intact/present MSH2: Intact/present MSH6: Intact/present Assessment: 63 y.o. male patent with hx of stage IIIB colon adenocarcinoma (MMR proficient) status post left hemicolectomy on 04/09/18 followed by completion of 6-month adjuvant therapy in 2018. He has been on surveillance since then. Hx of Stage IIIB colon adenocarcinoma of descending colon - s/p L colectomy - MMR proficient. pT3N1b = stage IIIB, technically low risk stage three, however, with some aggressive features including <12 nodes sampled, LVI, PNI, 3 tumor deposits present. - s/p adjuvant chemotherapy with 3 months of CAPOX followed by 3 months of Capecitabine alone. - last colonoscopy was done 05/18/22, two benign polyps, repeat in 2 years - CT CAP 06/06/23 demonstrates new soft tissue nodule superior medial to the anastomosis site concerning for recurrence. CEA wnl. - Will reach out to Dr. Herring's office - F/U after appt with surg-onc Plan: - RTC after appt with surg-onc Jessa Cui APRN-PERCUSSION INSTRUMENT REPAIRER Attending addendum I have personally seen and examined the patient today and discussed the plan of care with JUANITA Corona, who prepared the above progress note. I provided a substantive portion of the care for this patient including personally performing all aspects of the medical decision making for this encounter. I have also reviewed medication list, pertinent laboratory and diagnostic tests, and physical exam. I have reviewed this documentation and it reflects our care provided. Maury Wagner is a 63 y.o. male with hx of stage IIIB colon adenocarcinoma (MMR proficient) status post left hemicolectomy on 04/09/18 followed by completion of 6-month adjuvant therapy in 2018. He has been on surveillance since then. Presents for follow up. His CT CAP from 06/06/23 with a nonspecific soft tissue nodule near the anastomosis site, colonoscopy on 07/26/23 with nonspecific edema and submucosal mass at the anastamosis; Dr. Herring is planning tentatively to resect this. Otherwise he is doing well overall without new complaints. Will continue on surveillance for now unless concerning findings on pathology, next scans due at the end of November 2023. - Followup with Dr. Herring on 08/08/23, resection date TBD. Renal Lesion: Has been enlarging on serial scans. Seeing Urology later today. RTC 4 weeks after resection to review pathology. Documented by Ori Hudson, for Dr. Gil on 07/31/2023 at 12:14 PM. All medical record entries made by the Tristan were at my direction and personally dictated by me, Dr. Jeffery MD. I have reviewed the chart and agree that the record accurately reflects my personal performance of the history, physical exam, assessment and plan. I have also personally directed, reviewed, and agree with the discharge instructions. Aleksandra Gil MD Commodity Loan Clerk, Gastrointestinal Oncology [facility] [place] Total time: 40 minutes spent on visit with more than 50% spent providing counseling, patient education for medication use, EMR review and entry, reviewing paper documents today, medication rx preparation / review and explaining recommendations to patient, delivering verbal and written instructions, and coordination of care. documented in this encounter [facility] 07-31-2023 Instructions Rosita Braden RN - 07/31/2023 10:20 AM EDT Your follow up appointment will be scheduled after you speak with Dr. Herring. documented in this encounter [facility] 07-26-2023 History and physical note ENDOSCOPIC PREPROCEDURE HISTORY AND PHYSICAL HISTORY OF PRESENT ILLNESS: Maury Wagner is a 63 y.o. male seen in the pre-procedure area at [facility]. The indication for endoscopic evaluation includes: Malignant neoplasm of colon, unspecified part of colon PAST MEDICAL HISTORY: Past Medical History: Diagnosis Date BPH (benign prostatic hyperplasia) Colon adenocarcinoma 04/2018 Stage IIIB s/p L hemicolectomy Colon polyp January 2015 Diverticulosis Essential hypertension, benign Hepatic steatosis Hyperlipidemia SURGICAL HISTORY: Past Surgical History: Procedure Laterality Date COLONOSCOPY FOR COLORECTAL CANCER SCREENING HIGH RISK INDIVIDUAL N/A 04/15/2020 Laterality: N/A; Surgeon: Armani Herring MD; Location: [facility]COPY LIPOMA RESECTION 07/23/2019 Upper back soft tissue mass - lipoma removed by Dr. Shanks at [facility] COLONOSCOPY FOR COLORECTAL CANCER SCREENING HIGH RISK INDIVIDUAL N/A 05/01/2019 Laterality: N/A; Surgeon: Armani Herring MD; Location: [facility] ENDOSCOPY COLECTOMY PARTIAL LAPAROSCOPIC N/A 04/09/2018 Laterality: N/A; Surgeon: Armani Herring MD; Location: [facility] COLONOSCOPY FOR COLORECTAL CANCER SCREENING HIGH RISK INDIVIDUAL N/A 02/14/2018 Laterality: N/A; Surgeon: Armani Herring MD; Location: [facility] SIGMOIDOSCOPY FLEXIBLE FOR COLORECTAL CANCER SCREENING N/A 03/02/2016 Laterality: N/A; Surgeon: Armani Herring MD; Location: [facility]OSCOPY SIGMOIDOSCOPY FLEXIBLE FOR COLORECTAL CANCER SCREENING N/A 02/11/2015 Laterality: N/A; Surgeon: Armani Herring MD; Location: [facility] COLONOSCOPY DIAGNOSTIC January 2015 ROTATOR CUFF REPAIR Left 2010 SINUS SURGERY 1990 ARM SURGERY Left 1969 KNEE REPLACEMENT Right MEDICATIONS: Current Outpatient Medications Medication Instructions amLODIPine (NORVASC) 10 mg, Oral, DAILY Atorvastatin (LIPITOR) 20 mg, Oral, DAILY Lisinopril (PRINIVIL) 10 mg, Oral, DAILY Current Outpatient Medications: amLODIPine 10 MG tablet, Take 1 tablet by mouth daily., Disp: , Rfl: atorvastatin 20 MG Tab, Take 1 tablet by mouth daily., Disp: , Rfl: lisinopril 10 MG Tab tablet, Take 1 tablet by mouth daily., Disp: , Rfl: Current Facility-Administered Medications: fentaNYL (SUBLIMAZE) injection 100 mcg, 100 mcg, Intravenous, As directed PRN, Armani Herring MD Flumazenil (ROMAZICON) injection 0.5 mg, 0.5 mg, Intravenous, As directed PRN, Armani Herring MD Lactated ringers IV solution, , Intravenous, Continuous, Armani Herring MD lidocaine 1% buffered in sodium bicarbonate 1-8.4 % injection SOSY 1 mL, 1 mL, Intradermal, PRN, Armani Herring MD midazolam (VERSED) injection 10 mg, 10 mg, Intravenous, As directed PRN, Armani Herring MD simethicone in sterile water 40 mg/1000 mL irrigation 1 Application, 1 Application, Irrigation, As directed PRN, Armani Herring MD simethicone undiluted 40 mg/0.6 mL irrigation 1 Application, 1 Application, Irrigation, As directed PRN, Armani Herring MD ALLERGIES: Allergies Allergen Reactions Penicillins Hives Percocet [Oxycodone-Acetaminophen] Hives FOCUSED REVIEW OF SYSTEMS: Negative for nausea, vomiting, abdominal pain and diarrhea VITAL SIGNS: Vitals: 07/26/23 1049 07/26/23 1051 07/26/23 1055 07/26/23 1105 BP: 134/86 121/80 116/79 138/83 Pulse: 92 87 84 97 Resp: SpO2: 98% 97% 96% 95% Height: PREPROCEDURE PHYSICAL EXAM: AIRWAY: normal, Mallampati: Class II (complete visualization of the uvula) HEART: Regular and No murmur PULMONARY: Lungs clear to auscultation bilaterally ABDOMEN: Soft, nontender, nondistended ASSESSMENT: Maury Wagner is a 63 y.o. male is ready for the planned procedure. ASA Class: ASA 2 - Patient with mild systemic disease with no functional limitations PLAN: Will plan to proceed with SCREENING COLONOSCOPY using Moderate Sedation. Armani Herring MD [facility] 07-26-2023 History and physical note ENDOSCOPIC PREPROCEDURE HISTORY AND PHYSICAL HISTORY OF PRESENT ILLNESS: Maury Wagner is a 63 y.o. male seen in the pre-procedure area at [facility]. The indication for endoscopic evaluation includes: Malignant neoplasm of colon, unspecified part of colon PAST MEDICAL HISTORY: Past Medical History: Diagnosis Date BPH (benign prostatic hyperplasia) Colon adenocarcinoma 04/2018 Stage IIIB s/p L hemicolectomy Colon polyp January 2015 Diverticulosis Essential hypertension, benign Hepatic steatosis Hyperlipidemia SURGICAL HISTORY: Past Surgical History: Procedure Laterality Date COLONOSCOPY FOR COLORECTAL CANCER SCREENING HIGH RISK INDIVIDUAL N/A 04/15/2020 Laterality: N/A; Surgeon: Armani Herring MD; Location: [facility] LIPOMA RESECTION 07/23/2019 Upper back soft tissue mass - lipoma removed by Dr. Shanks at [facility] COLONOSCOPY FOR COLORECTAL CANCER SCREENING HIGH RISK INDIVIDUAL N/A 05/01/2019 Laterality: N/A; Surgeon: Armani Herring MD; Location: [facility]OSCOPY COLECTOMY PARTIAL LAPAROSCOPIC N/A 04/09/2018 Laterality: N/A; Surgeon: Armani Herring MD; Location: [facility] MAIN OR COLONOSCOPY FOR COLORECTAL CANCER SCREENING HIGH RISK INDIVIDUAL N/A 02/14/2018 Laterality: N/A; Surgeon: Armani Herring MD; Location: [facility]OSCOPY SIGMOIDOSCOPY FLEXIBLE FOR COLORECTAL CANCER SCREENING N/A 03/02/2016 Laterality: N/A; Surgeon: Armani Herring MD; Location: [facility] SIGMOIDOSCOPY FLEXIBLE FOR COLORECTAL CANCER SCREENING N/A 02/11/2015 Laterality: N/A; Surgeon: Armani Herring MD; Location: [facility]OSCOPY COLONOSCOPY DIAGNOSTIC January 2015 ROTATOR CUFF REPAIR Left 2010 SINUS SURGERY 1989 ARM SURGERY Left 1968 KNEE REPLACEMENT Right MEDICATIONS: Current Outpatient Medications Medication Instructions amLODIPine (NORVASC) 10 mg, Oral, DAILY Atorvastatin (LIPITOR) 20 mg, Oral, DAILY Lisinopril (PRINIVIL) 10 mg, Oral, DAILY Current Outpatient Medications: amLODIPine 10 MG tablet, Take 1 tablet by mouth daily., Disp: , Rfl: atorvastatin 20 MG Tab, Take 1 tablet by mouth daily., Disp: , Rfl: lisinopril 10 MG Tab tablet, Take 1 tablet by mouth daily., Disp: , Rfl: Current Facility-Administered Medications: fentaNYL (SUBLIMAZE) injection 100 mcg, 100 mcg, Intravenous, As directed PRN, Armani Herring MD Flumazenil (ROMAZICON) injection 0.5 mg, 0.5 mg, Intravenous, As directed PRN, Armani Herring MD Lactated ringers IV solution, , Intravenous, Continuous, Armani Herring MD lidocaine 1% buffered in sodium bicarbonate 1-8.4 % injection SOSY 1 mL, 1 mL, Intradermal, PRN, Armani Herring MD midazolam (VERSED) injection 10 mg, 10 mg, Intravenous, As directed PRN, Armani Herring MD simethicone in sterile water 40 mg/1000 mL irrigation 1 Application, 1 Application, Irrigation, As directed PRN, Armani Herring MD simethicone undiluted 40 mg/0.6 mL irrigation 1 Application, 1 Application, Irrigation, As directed PRN, Armani Herring MD ALLERGIES: Allergies Allergen Reactions Penicillins Hives Percocet [Oxycodone-Acetaminophen] Hives FOCUSED REVIEW OF SYSTEMS: Negative for nausea, vomiting, abdominal pain and diarrhea VITAL SIGNS: Vitals: 07/26/23 1049 07/26/23 1051 07/26/23 1055 07/26/23 1105 BP: 134/86 121/80 116/79 138/83 Pulse: 92 87 84 97 Resp: SpO2: 98% 97% 96% 95% Height: PREPROCEDURE PHYSICAL EXAM: AIRWAY: normal, Mallampati: Class II (complete visualization of the uvula) HEART: Regular and No murmur PULMONARY: Lungs clear to auscultation bilaterally ABDOMEN: Soft, nontender, nondistended ASSESSMENT: Maury Wagner is a 63 y.o. male is ready for the planned procedure. ASA Class: ASA 2 - Patient with mild systemic disease with no functional limitations PLAN: Will plan to proceed with SCREENING COLONOSCOPY using Moderate Sedation. Armani Herring MD documented in this encounter [facility] 07-26-2023 Nurse Note MD chang to ANICETO. IV removed. DC teaching reviewed. Pt declines help getting dressed. Family present. documented in this encounter [facility] 07-26-2023 Nurse Surgical operation note MD bernardo hairston DC. IV removed. DC teaching reviewed. Pt declines help getting dressed. Family present. [facility] 07-11-2023 History of Presen t illness Narrative Surgery History and Physical Chief Complaint: Concern for Recurrence History of Present Illness: Maury Wagner is a 63 y.o. male with hx of BPH, Colon adenocarcinoma s/p left hemicolectomy 04/2018 showing moderately differentiated adenocarcinoma with negative margins (closest 1.4cm radial) with 3/9 + nodes, pT3N1b, with intact MMR who presents for followup due to concern for recurrence on CT scan. After surgery he had adjuvant chemo and then was monitored. Colonoscopy 04/2019 showed a tubular adenoma of the TC and hyperplastic polyp of the rectum. Colonoscopy 05/2022 showed sessile lesion of the ascending colon, and hyperplastic rectal polyp. There was evidence of a prior end-to-end colo-colonic anastomosis in the descending colon. This was patent and was characterized by healthy appearing mucosa. He had multiple scans as well that were normal. Recently he had his 5 year scan 06/06/2023 with KRISTINA in the chest and a nodule noted at the prior anastomotic site concerning for recurrence. Also noted was a possible renal neoplasm. No other signs of metastatic disease. He had a CEA 06/2023 with CEA of 2.3 Prior before that was <2.0 He is otherwise doing well with no s/s or complaints today. Problem List: Patient Active Problem List Diagnosis Malignant neoplasm of descending colon Obesity: body mass index of 30.0-34.9 History of colon cancer Past Medical History: Past Medical History: Diagnosis Date BPH (benign prostatic hyperplasia) Colon adenocarcinoma 04/2018 Stage IIIB s/p L hemicolectomy Colon polyp January 2015 Diverticulosis Essential hypertension, benign Hepatic steatosis Hyperlipidemia Past Surgical History: Past Surgical History: Procedure Laterality Date COLONOSCOPY FOR COLORECTAL CANCER SCREENING HIGH RISK INDIVIDUAL N/A 04/15/2020 Laterality: N/A; Surgeon: Armani Herring MD; Location: [facility] LIPOMA RESECTION 07/23/2019 Upper back soft tissue mass - lipoma removed by Dr. Shanks at [facility] COLONOSCOPY FOR COLORECTAL CANCER SCREENING HIGH RISK INDIVIDUAL N/A 05/01/2019 Laterality: N/A; Surgeon: Armani Herring MD; Location: [facility] COLECTOMY PARTIAL LAPAROSCOPIC N/A 04/09/2018 Laterality: N/A; Surgeon: Armani Herring MD; Location: [facility] MAIN OR COLONOSCOPY FOR COLORECTAL CANCER SCREENING HIGH RISK INDIVIDUAL N/A 02/14/2018 Laterality: N/A; Surgeon: Armani Herring MD; Location: [facility] ENDOSCOPY SIGMOIDOSCOPY FLEXIBLE FOR COLORECTAL CANCER SCREENING N/A 03/02/2016 Laterality: N/A; Surgeon: Armani Herring MD; Location: [facility] SIGMOIDOSCOPY FLEXIBLE FOR COLORECTAL CANCER SCREENING N/A 02/11/2015 Laterality: N/A; Surgeon: Armani Herring MD; Location: [facility] COLONOSCOPY DIAGNOSTIC January 2015 ROTATOR CUFF REPAIR Left 2010 SINUS SURGERY 1989 ARM SURGERY Left 1969 KNEE REPLACEMENT Right Family Medical History: his family history includes Colorectal Polyps in his father; Prostate Cancer (age of onset: 89) in his maternal grandfather. Uncle with colon cancer. Social History: he reports that he has never smoked. He has never used smokeless tobacco. He reports current alcohol use. He reports that he does not use drugs. Allergies: Allergies Allergen Reactions Penicillins Hives Percocet [Oxycodone-Acetaminophen] Hives Home Medications: (Not in a hospital admission) Review of Systems: No fevers, chills, chest pain, sob No n/v No diarrhea, changes in BM, bloody BMs OBJECTIVE FINDINGS: Blood pressure 155/82, pulse 98, temperature 97.7 F (36.5 C), temperature source Infrared, resp. rate 18, height 1.778 m (5' 10 ), weight 88.9 kg (196 lb), SpO2 97 %. Physical Exam: General appearance: alert, cooperative, no distress, appears stated age Head: Normocephalic, without obvious abnormality, atraumatic Lungs: Symmetric chest rise on RA Heart: HR normal Abdomen: Soft nontender nondistended Extremities: Warm Skin: No rashes or lesions Neurologic: Grossly normal Labs: @LYTESROUNDS@ Imaging: CT CHEST WITH CONTRAST, 06/06/2023 09:41 AM Stable examination, with no evidence of intrathoracic metastatic disease. CT ABDOMEN/PELVIS WITH CONTRAST, 06/06/2023 09:41 AM 1. Status post left hemicolectomy. Superior medial to the anastomosis site in the left mid abdomen there is a soft tissue nodule concerning for recurrence of neoplasm/metastatic disease. 2. Lesion in the inferior pole cortex of the right kidney has irregularly thickened internal septations and has slowly increased in size over multiple comparison studies, concerning for primary renal neoplasm. 3. No evidence of solid organ metastatic disease in the abdomen/pelvis. 4. No abdominopelvic lymphadenopathy identified by pathologic size criteria. 5. Prostatomegaly. ASSESSMENT/PLAN: Maury Wagner is a 63 y.o. male with hx of BPH, Colon adenocarcinoma s/p left hemicolectomy 04/2018 showing moderately differentiated adenocarcinoma with negative margins (closest 1.4cm radial) with 3/9 + nodes, pT3N1b, with intact MMR who presents for followup due to concern for recurrence on CT scan with rising CEA. CT also with growing lesion of the right kidney increasing in size c/f primary renal neoplasm. -On our view, the area that is being called was actually present (though smaller) on last CT scan 1 year ago -Will get repeat colonoscopy scheduled -Have patient FU with Urology for renal mass -Will see patient back in clinic after urology and repeat colonoscopy- will need re-resection Jazmin Zepeda MD Addendum: I have reviewed this note and examined the patient and agree with the plan. 63 yo 5 years after left colectomy for stage III colon cancer. He has done well. He now has a CT finding suspicous for a recurrent colon cancer. He also has a right renal mass. Plan: colonoscopy. Appointment to see Dr. Potter to evaluate the renal mass. RTC to set up surgical resection. documented in this encounter [facility] 06-19-2023 History of Presen t illness Narrative GI MEDICAL ONCOLOGY CLINIC NOTE Attending: Dr. Aleksandra Gil Visit Date: 06/19/2023 Chief Complaint: Follow up visit for history of L colon adenocarcinoma, diagnosed 02/2018 Oncologic History: 63 y.o. M with hx of HTN, HLD, colon polyps and subsequent diagnosis of stage IIIB colon cancer. Pt had a colon polyp with adenocarcinoma in 2014. On surveillance colonoscopy 02/14/[address] Herring, he had a mass at the splenic flexure. Biopsy showed invasive adenocarcinoma. Staging CT scans w/o metastatic disease. Underwent laparoscopic L hemicolectomy on 04/09/[address] Herring. Pathology showed moderately differentiated adenocarcinoma w mucinous features, 4.8 cm with extension through muscularis propria, negative margins, (+) LVI, (+) PNI, 3/9 nodes positive, 3 tumor deposits noted, ALBARO. Pt began adjuvant Xelox on 06/19/18 and then transitioned into single agent Xeloda with C5D1 (09/10/18). He completed 4 cycles (3-month) therapy of single agent xeloda in 2018. Pt has been on surveillance since then. Interval History: He presents today for surveillance visit with labs. He is doing well with good levels of energy and appetite. No new complaints. He denies any issues with nausea, vomiting, diarrhea, constipation, fever, chills, melena, hematochezia, SOB, or new/increasing pain. Medical/Surgical History: Past Medical History: Diagnosis Date BPH (benign prostatic hyperplasia) Colon adenocarcinoma 04/2018 Stage IIIB s/p L hemicolectomy Colon polyp January 2015 Diverticulosis Essential hypertension, benign Hepatic steatosis Hyperlipidemia Past Surgical History: Procedure Laterality Date COLONOSCOPY FOR COLORECTAL CANCER SCREENING HIGH RISK INDIVIDUAL N/A 04/15/2020 Laterality: N/A; Surgeon: Armani Herring MD; Location: [facility] LIPOMA RESECTION 07/23/2019 Upper back soft tissue mass - lipoma removed by Dr. Shanks at [facility] COLONOSCOPY FOR COLORECTAL CANCER SCREENING HIGH RISK INDIVIDUAL N/A 05/01/2019 Laterality: N/A; Surgeon: Armani Herring MD; Location: [facility] COLECTOMY PARTIAL LAPAROSCOPIC N/A 04/09/2018 Laterality: N/A; Surgeon: Armani Herring MD; Location: [facility] COLONOSCOPY FOR COLORECTAL CANCER SCREENING HIGH RISK INDIVIDUAL N/A 02/14/2018 Laterality: N/A; Surgeon: Armani Herring MD; Location: [facility] SIGMOIDOSCOPY FLEXIBLE FOR COLORECTAL CANCER SCREENING N/A 03/02/2016 Laterality: N/A; Surgeon: Armani Herring MD; Location: [facility]OSCOPY SIGMOIDOSCOPY FLEXIBLE FOR COLORECTAL CANCER SCREENING N/A 02/11/2015 Laterality: N/A; Surgeon: Armani Herring MD; Location: [facility]OSCOPY COLONOSCOPY DIAGNOSTIC January 2015 ROTATOR CUFF REPAIR Left 2010 SINUS SURGERY 1990 ARM SURGERY Left 1969 KNEE REPLACEMENT Right Family History: Family History Problem Relation Age of Onset Prostate Cancer Maternal Grandfather 89 Colorectal Polyps Father murdered by spouse Colorectal Cancer Neg Hx Social History: Social History Socioeconomic History Marital status: Tobacco Use Smoking status: Never Smokeless tobacco: Never Vaping Use Vaping Use: Former Substance and Sexual Activity Alcohol use: Yes Alcohol/week: 0.0 standard drinks of alcohol Comment: socially Drug use: No Social History Narrative Works in [employer] for [employer], both in office and the field. . Social Determinants of Health Financial Resource Strain: Low Risk (08/23/2020) Overall Financial Resource Strain (CARDIA) Difficulty of Paying Living Expenses: Not hard at all Food Insecurity: No Food Insecurity (08/23/2020) Hunger Vital Sign Worried About Running Out of Food in the Last Year: Never true Ran Out of Food in the Last Year: Never true Physical Activity: Sufficiently Active (11/12/2019) Exercise Vital Sign Days of Exercise per Week: 6 days Minutes of Exercise per Session: 50 min Review of Systems: Pertinent items are noted in interval history, all other systems were queried and are negative. Past medical, surgical, family, and social histories as well as medications and allergies were all reviewed per RN charting in EMR. Physical Exam: Vitals: 06/19/23 1409 BP: 146/90 Pulse: 82 Resp: 20 Temp: 98.6 degrees F (37 degrees C) TempSrc: Infrared SpO2: 97% Weight: 89.9 kg (198 lb 4.8 oz) Height: 1.778 m (5' 10 ) Wt Readings from Last 3 Encounters: 06/19/23 89.9 kg (198 lb 4.8 oz) 12/19/22 89.3 kg (196 lb 14.4 oz) 06/21/22 86.4 kg (190 lb 8 oz) Patient's Current Performance Status 0 APPEARANCE: Alert and oriented, in no acute distress. HEENT: Head atraumatic, normocephalic. EYES: Nonicteric. NECK: Supple. RESPIRATORY: Lungs are clear to auscultation bilaterally. CARDIOVASCULAR: Heart rate and rhythm regular. No peripheral edema. ABDOMEN: Soft, nontender, non-distended. LYMPHATICS: No cervical, supraclavicular, infraclavicular lymphadenopathy appreciated. MUSCULOSKELETAL: no gross deficits. NEUROLOGIC: No focal deficits. SKIN: Without jaundice; pink, warm and dry; good skin turgor. No rash noted. PSYCH: pleasant affect, appropriate for age and clinical situation. Laboratory data: Lab Results Component Value Date WBC 6.30 06/19/2023 HGB 15.8 06/19/2023 HCT 47.1 06/19/2023 PLATELET 326 06/19/2023 MCV 88.4 06/19/2023 Lab Results Component Value Date SODIUM 137 06/19/2023 POTASSIUM 4.0 06/19/2023 CHLORIDE 103 06/19/2023 CO2 27 06/19/2023 BUN 16 06/19/2023 CREATSERUM 0.96 06/19/2023 Lab Results Component Value Date ALT 32 06/19/2023 AST 27 06/19/2023 ALKPHOS 52 06/19/2023 BILITOTAL 1.0 06/19/2023 BILIDIRECT 0.2 11/13/2018 Lab Results Component Value Date CEA <2.0 12/19/2022 Most Recent Imagin06/06/23 CT CAP 1. Status post left hemicolectomy. Superior medial to the anastomosis site in the left mid abdomen there is a soft tissue nodule concerning for recurrence of neoplasm/metastatic disease. 2. Lesion in the inferior pole cortex of the right kidney has irregularly thickened internal septations and has slowly increased in size over multiple comparison studies, concerning for primary renal neoplasm. 3. No evidence of solid organ metastatic disease in the abdomen/pelvis. 4. No abdominopelvic lymphadenopathy identified by pathologic size criteria. 5. Prostatomegaly. 6. Stable examination, with no evidence of intrathoracic metastatic disease. Pathology 04/09/18: ---Final Pathologic Diagnosis--- A. Left colon, excision: - Moderately differentiated adenocarcinoma, 4.8 cm, with mucinous features, arising in the left colon - All margins uninvolved (closest margin = 1.4 cm to the radial margin) - Background high-grade dysplasia/intramucosal carcinoma and dystrophic calcifications - Adenocarcinoma extends through the muscularis propria - Lymphovascular and perineural invasion identified - Three of nine lymph nodes involved by metastasis (3/9); extra-joel extension identified - Tumor deposits = 3 - Background colon with diverticular disease - Additional sections submitted SYNOPTIC REPORT FOR CARCINOMA OF THE COLON AND RECTUM: Procedure: Left colon resection Tumor site: Left colon Gross tumor configuration: Exophytic Tumor size: 4.8 cm Histologic type: Adenocarcinoma Histologic grade: G2: Moderately-differentiated Tumor Extension: Tumor extends through the muscularis propria into the pericolic colorectal fat Macroscopic perforation: Not identified Obstruction: Not reported Tumor borders: Infiltrative Lymphatic/vascular invasion: Identified Perineural invasion: Identified Margins: All involved; closest margin = 1.4 cm to the radial margin; adenocarcinoma 4.9 cm to the closest longitudinal margin and 9.0 cm to the opposite longitudinal margin Lymph nodes: Number examined: 9 Number positive: 3 Extranodal extension: Present Tumor deposits (Discontinuous extramural extension): Number present: 3 Tumor budding: Number of tumor buds in 1 hotspot field (per 0.785 mm2 area): 7.4 (TB=single cells or small clusters less than 5 cells at tumor invasive front; If eyepiece FN=22, divide # of TB in one hotspot 20x field by 1.210 to get 0.785 mm2 area) Score (by H&E evaluation): Intermediate score [5-9 buds] Treatment Effect: No known presurgical therapy Macroscopic intactness of mesorectum: Not applicable Tumor best seen on block(s): A4-7 Normal best seen on block(s): A1-2 pTNM: pT3 N1b Mismatch Repair Protein (MMR) Nuclear Expression by IHC: (present/intact or absent/lost) MLH1: Intact/present PMS2: Intact/present MSH2: Intact/present MSH6: Intact/present Assessment: 63 y.o. male patent with hx of stage IIIB colon adenocarcinoma (MMR proficient) status post left hemicolectomy on 04/09/18 followed by completion of 6-month adjuvant therapy in 2018. He has been on surveillance since then. Hx of Stage IIIB colon adenocarcinoma of descending colon - s/p L colectomy - MMR proficient. pT3N1b = stage IIIB, technically low risk stage three, however, with some aggressive features including <12 nodes sampled, LVI, PNI, 3 tumor deposits present. - s/p adjuvant chemotherapy with 3 months of CAPOX followed by 3 months of Capecitabine alone. - last colonoscopy was done 05/18/22, two benign polyps, repeat in 2 years - CT CAP 06/06/23 demonstrates new soft tissue nodule superior medial to the anastomosis site concerning for recurrence. CEA wnl. - Will reach out to Dr. Herring's office - F/U after appt with surg-onc Plan: - RTC after appt with surg-onc JUANITA Corona Attending Addendum: I have personally seen and examined the patient today. I discussed the plan of care with JUANITA Corona, who prepared today s progress note. I have evaluated the patient myself and reviewed all the pertinent data. Maury Wagner is a 63 y.o. male with hx of stage IIIB colon adenocarcinoma (MMR proficient) status post left hemicolectomy on 04/09/18 followed by completion of 6-month adjuvant therapy in 2018. He has been on surveillance since then. Presents for follow up. Clinically doing well. - CT C/A/P 06/06/23 concerning for new soft tissue nodule superior medial to the anastomosis site, recurrence can't be ruled out. Labs reviewed. CEA never elevated, likely doesn't make CEA. Discussed with Dr. Herring (CR[facility]), will schedule colonoscopy. The patient is agreeable of the plan. Referral to urology given complex renal cyst. RTC after colonoscopy. Aleksandra Gil MD [employer], Gastrointestinal Oncology [facility] Total time: 40 minutes spent on visit with more than 50% spent providing counseling, patient education for medication use, EMR review and entry, reviewing paper documents today, medication rx preparation / review and explaining recommendations to patient, delivering verbal and written instructions, and coordination of care. documented in this encounter [facility] 06-19-2023 Instructions Rosita Braden RN - 06/19/2023 2:20 PM EDT Please schedule an appt with Colorectal surgery (Dr. Herring). Please return to clinic for an in person visit with Dr. Gil after the visit with Colorectal. documented in this encounter [facility] 12-19-2022 History of Presen t illness Narrative GI MEDICAL ONCOLOGY CLINIC NOTE Attending: Dr. Hui Aponte -> Dr. Jeffery Lake Visit Date: 12/19/2022 Chief Complaint: Follow up visit for history of L colon adenocarcinoma, diagnosed 02/2018 Oncologic History: 62 y.o. M with hx of HTN, HLD, colon polyps and subsequent diagnosis of stage IIIB colon cancer. Pt had a colon polyp with adenocarcinoma in 2014. On surveillance colonoscopy 02/14/[address] Herring, he had a mass at the splenic flexure. Biopsy showed invasive adenocarcinoma. Staging CT scans w/o metastatic disease. Underwent laparoscopic L hemicolectomy on 04/09/[address] Herring. Pathology showed moderately differentiated adenocarcinoma w mucinous features, 4.8 cm with extension through muscularis propria, negative margins, (+) LVI, (+) PNI, 3/9 nodes positive, 3 tumor deposits noted, ALBARO. Pt began adjuvant Xelox on 06/19/18 and then transitioned into single agent Xeloda with C5D1 (09/10/18). He completed 4 cycles (3-month) therapy of single agent xeloda in 2018. Pt has been on surveillance since then. Interval History: He presents today for surveillance visit with labs. He is doing well with good levels of energy and appetite. He denies any issues with nausea, vomiting, diarrhea, constipation, fever, chills, melena, hematochezia, SOB, or new/increasing pain. Medical/Surgical History: Past Medical History: Diagnosis Date BPH (benign prostatic hyperplasia) Colon adenocarcinoma 04/2018 Stage IIIB s/p L hemicolectomy Colon polyp January 2015 Diverticulosis Essential hypertension, benign Hepatic steatosis Hyperlipidemia Past Surgical History: Procedure Laterality Date COLONOSCOPY FOR COLORECTAL CANCER SCREENING HIGH RISK INDIVIDUAL N/A 04/15/2020 Laterality: N/A; Surgeon: Armani Herring MD; Location: [facility] LIPOMA RESECTION 07/23/2019 Upper back soft tissue mass - lipoma removed by Dr. Shanks at [facility] COLONOSCOPY FOR COLORECTAL CANCER SCREENING HIGH RISK INDIVIDUAL N/A 05/01/2019 Laterality: N/A; Surgeon: Armani Herring MD; Location: [facility] COLECTOMY PARTIAL LAPAROSCOPIC N/A 04/09/2018 Laterality: N/A; Surgeon: Armani Herring MD; Location: [facility] COLONOSCOPY FOR COLORECTAL CANCER SCREENING HIGH RISK INDIVIDUAL N/A 02/14/2018 Laterality: N/A; Surgeon: Armani Herring MD; Location: [facility] SIGMOIDOSCOPY FLEXIBLE FOR COLORECTAL CANCER SCREENING N/A 03/02/2016 Laterality: N/A; Surgeon: Armani Herring MD; Location: [facility] SIGMOIDOSCOPY FLEXIBLE FOR COLORECTAL CANCER SCREENING N/A 02/11/2015 Laterality: N/A; Surgeon: Armani Herring MD; Location: [facility] COLONOSCOPY DIAGNOSTIC January 2015 ROTATOR CUFF REPAIR Left 2010 SINUS SURGERY 1990 ARM SURGERY Left 1969 KNEE REPLACEMENT Right Family History: Family History Problem Relation Age of Onset Prostate Cancer Maternal Grandfather 89 Colorectal Polyps Father murdered by spouse Colorectal Cancer Neg Hx Social History: Social History Socioeconomic History Marital status: Tobacco Use Smoking status: Never Smokeless tobacco: Never Vaping Use Vaping Use: Former Substance and Sexual Activity Alcohol use: Yes Alcohol/week: 0.0 standard drinks Comment: socially Drug use: No Social History Narrative Works in [employer] for [employer], both in office and the field. . Review of Systems: Pertinent items are noted in interval history, all other systems were queried and are negative. Past medical, surgical, family, and social histories as well as medications and allergies were all reviewed per RN charting in EMR. Physical Exam: Vitals: 12/19/22 0817 BP: 132/81 Pulse: 77 Resp: 18 Temp: 97.6 degrees F (36.4 degrees C) TempSrc: Oral SpO2: 96% Weight: 89.3 kg (196 lb 14.4 oz) Height: 1.783 m (5' 10.2 ) Wt Readings from Last 3 Encounters: 12/19/22 89.3 kg (196 lb 14.4 oz) 06/21/22 86.4 kg (190 lb 8 oz) 02/22/22 87.3 kg (192 lb 6.4 oz) Patient's Current Performance Status 0 APPEARANCE: Alert and oriented, in no acute distress. HEENT: Head atraumatic, normocephalic. EYES: Nonicteric. NECK: Supple. RESPIRATORY: Lungs are clear to auscultation bilaterally. CARDIOVASCULAR: Heart rate and rhythm regular. No peripheral edema. ABDOMEN: Soft, nontender, non-distended. LYMPHATICS: No cervical, supraclavicular, infraclavicular lymphadenopathy appreciated. MUSCULOSKELETAL: no gross deficits. NEUROLOGIC: No focal deficits. SKIN: Without jaundice; pink, warm and dry; good skin turgor. No rash noted. PSYCH: pleasant affect, appropriate for age and clinical situation. Laboratory data: Lab Results Component Value Date WBC 5.63 12/19/2022 HGB 15.6 12/19/2022 HCT 47.4 12/19/2022 PLATELET 326 12/19/2022 MCV 88.6 12/19/2022 Lab Results Component Value Date SODIUM 139 12/19/2022 POTASSIUM 4.1 12/19/2022 CHLORIDE 105 12/19/2022 CO2 27 12/19/2022 BUN 14 12/19/2022 CREATSERUM 0.94 12/19/2022 Lab Results Component Value Date ALT 27 12/19/2022 AST 27 12/19/2022 ALKPHOS 57 12/19/2022 BILITOTAL 1.2 12/19/2022 BILIDIRECT 0.2 11/13/2018 Lab Results Component Value Date CEA <2.0 12/19/2022 Most Recent Imagin06/05/22 CT CAP IMPRESSION: 1. Normal CT scan of the chest. IMPRESSION: 1. Postsurgical changes related to partial left hemicolectomy without evidence of locally recurrent disease. 2. No evidence of solid organ intra-abdominal metastatic disease. 3. No interval abdominal or pelvic lymphadenopathy by size criteria. 4. Bilateral renal cysts with a 1.6 cm cystic lesion in the right lower pole containing a thickened internal septation, increasing conspicuity from prior exam. Consider further characterization with dedicated renal mass MRI or contrast-enhanced ultrasound. The previously demonstrated right lower pole exophytic renal lesion is decreased in size from prior exam. 5. Cholelithiasis. Pathology 04/09/18: ---Final Pathologic Diagnosis--- A. Left colon, excision: - Moderately differentiated adenocarcinoma, 4.8 cm, with mucinous features, arising in the left colon - All margins uninvolved (closest margin = 1.4 cm to the radial margin) - Background high-grade dysplasia/intramucosal carcinoma and dystrophic calcifications - Adenocarcinoma extends through the muscularis propria - Lymphovascular and perineural invasion identified - Three of nine lymph nodes involved by metastasis (3/9); extra-joel extension identified - Tumor deposits = 3 - Background colon with diverticular disease - Additional sections submitted SYNOPTIC REPORT FOR CARCINOMA OF THE COLON AND RECTUM: Procedure: Left colon resection Tumor site: Left colon Gross tumor configuration: Exophytic Tumor size: 4.8 cm Histologic type: Adenocarcinoma Histologic grade: G2: Moderately-differentiated Tumor Extension: Tumor extends through the muscularis propria into the pericolic colorectal fat Macroscopic perforation: Not identified Obstruction: Not reported Tumor borders: Infiltrative Lymphatic/vascular invasion: Identified Perineural invasion: Identified Margins: All involved; closest margin = 1.4 cm to the radial margin; adenocarcinoma 4.9 cm to the closest longitudinal margin and 9.0 cm to the opposite longitudinal margin Lymph nodes: Number examined: 9 Number positive: 3 Extranodal extension: Present Tumor deposits (Discontinuous extramural extension): Number present: 3 Tumor budding: Number of tumor buds in 1 hotspot field (per 0.785 mm2 area): 7.4 (TB=single cells or small clusters less than 5 cells at tumor invasive front; If eyepiece FN=22, divide # of TB in one hotspot 20x field by 1.210 to get 0.785 mm2 area) Score (by H&E evaluation): Intermediate score [5-9 buds] Treatment Effect: No known presurgical therapy Macroscopic intactness of mesorectum: Not applicable Tumor best seen on block(s): A4-7 Normal best seen on block(s): A1-2 pTNM: pT3 N1b Mismatch Repair Protein (MMR) Nuclear Expression by IHC: (present/intact or absent/lost) MLH1: Intact/present PMS2: Intact/present MSH2: Intact/present MSH6: Intact/present Assessment: 62 y.o. male patent with hx of stage IIIB colon adenocarcinoma (MMR proficient) status post left hemicolectomy on 04/09/18 followed by completion of 6-month adjuvant therapy in 2018. He has been on surveillance since then. Hx of Stage IIIB colon adenocarcinoma of descending colon - s/p L colectomy - MMR proficient. pT3N1b = stage IIIB, technically low risk stage three, however, with some aggressive features including <12 nodes sampled, LVI, PNI, 3 tumor deposits present. - s/p adjuvant chemotherapy with 3 months of CAPOX followed by 3 months of Capecitabine alone. - last colonoscopy was done 05/18/22, two benign polyps, repeat in 2 years - Most recent CT scans on May, show no evidence of disease. - He is doing well today with no new concerns. Collective results with no concern for disease. He is now 4 years since completion of adjuvant treatment. PS 0. VSS. Lab reviewed, unremarkable. CEA wnl. Plan: - RTC 6 months with labs/scans. JUANITA Teran documented in this encounter [facility] 12-19-2022 Instructions JUANITA Teran - 12/19/2022 8:30 AM EDT You will return in 6 months for a In Person visit to see Dr. Jeffery Lake with [employer] OPERATOR labs and CT scans prior. documented in this encounter [facility] 05-18-2022 History and physical note ENDOSCOPIC PREPROCEDURE HISTORY AND PHYSICAL HISTORY OF PRESENT ILLNESS: Maury Wagner is a 62 y.o. male seen in the preoprocedure area at [facility]. The indication for endoscopic evaluation includes: History of colon cancer PAST MEDICAL HISTORY: Past Medical History: Diagnosis Date BPH (benign prostatic hyperplasia) Colon adenocarcinoma 04/2018 Stage IIIB s/p L hemicolectomy Colon polyp January 2015 Diverticulosis Essential hypertension, benign Hepatic steatosis Hyperlipidemia SURGICAL HISTORY: Past Surgical History: Procedure Laterality Date COLONOSCOPY FOR COLORECTAL CANCER SCREENING HIGH RISK INDIVIDUAL N/A 04/15/2020 Laterality: N/A; Surgeon: Armani Herring MD; Location: [facility] LIPOMA RESECTION 07/23/2019 Upper back soft tissue mass - lipoma removed by Dr. Shanks at [facility] COLONOSCOPY FOR COLORECTAL CANCER SCREENING HIGH RISK INDIVIDUAL N/A 05/01/2019 Laterality: N/A; Surgeon: Armani Herring MD; Location: [facility] COLECTOMY PARTIAL LAPAROSCOPIC N/A 04/09/2018 Laterality: N/A; Surgeon: Armani Herring MD; Location: [facility] COLONOSCOPY FOR COLORECTAL CANCER SCREENING HIGH RISK INDIVIDUAL N/A 02/14/2018 Laterality: N/A; Surgeon: Armani Herring MD; Location: [facility] SIGMOIDOSCOPY FLEXIBLE FOR COLORECTAL CANCER SCREENING N/A 03/02/2016 Laterality: N/A; Surgeon: Armani Herring MD; Location: [facility] SIGMOIDOSCOPY FLEXIBLE FOR COLORECTAL CANCER SCREENING N/A 02/11/2015 Laterality: N/A; Surgeon: Armani Herring MD; Location: [facility] COLONOSCOPY DIAGNOSTIC January 2015 ROTATOR CUFF REPAIR Left 2009 SINUS SURGERY 1989 ARM SURGERY Left 1968 KNEE REPLACEMENT Right MEDICATIONS: Current Outpatient Medications Medication Instructions amLODIPine (NORVASC) 10 mg, Oral, DAILY atorvastatin (LIPITOR) 20 mg, DAILY lisinopril (PRINIVIL) 10 mg, Oral, DAILY Current Outpatient Medications: amLODIPine 10 MG tablet, Take 10 mg by mouth daily. , Disp: , Rfl: atorvastatin 20 MG Tab, take 20 mg by mouth daily., Disp: , Rfl: lisinopril 10 MG Tab tablet, Take 10 mg by mouth daily., Disp: , Rfl: Current Facility-Administered Medications: fentaNYL (SUBLIMAZE) injection 100 mcg, 100 mcg, Intravenous, As directed PRN, Amrani Herring MD flumazenil (ROMAZICON) injection 0.5 mg, 0.5 mg, Intravenous, As directed PRN, Armani Herring MD lactated ringers IV solution, , Intravenous, Continuous, Armani Herring MD lidocaine 1% buffered in sodium bicarbonate 1-8.4 % injection SOSY 1 mL, 1 mL, Intradermal, PRN, Armani Herring MD midazolam (VERSED) injection 10 mg, 10 mg, Intravenous, As directed PRN, Armani Herring MD simethicone in sterile water 40 mg/1000 mL irrigation 1 Application, 1 Application, Irrigation, As directed PRN, Armani Herring MD simethicone undiluted 40 mg/0.6 mL irrigation 1 Application, 1 Application, Irrigation, As directed PRN, Armani Herring MD ALLERGIES: Allergies Allergen Reactions Penicillins Hives Percocet [Oxycodone-Acetaminophen] Hives FOCUSED REVIEW OF SYSTEMS: Negative for nausea, vomiting, abdominal pain and diarrhea VITAL SIGNS: Vitals: 05/18/22 1059 BP: 141/81 Pulse: 84 Resp: 19 Temp: 98.4 degrees F (36.9 degrees C) TempSrc: Infrared SpO2: 95% Height: 1.727 m (5' 8 ) PREPROCEDURE PHYSICAL EXAM: AIRWAY: normal, Mallampati: Class II (complete visualization of the uvula) HEART: Regular PULMONARY: NWB on RA ABDOMEN: Soft, nontender, nondistended ASSESSMENT: Maury Wagner is a 62 y.o. male is ready for the planned procedure. ASA Class: ASA 2 - Patient with mild systemic disease with no functional limitations PLAN: Will plan to proceed with SCREENING COLONOSCOPY using Moderate Sedation. Mp Izquierdo MD, PhD General Surgery PGY-2 Pager: [phone] [facility] Work Phone: 05-18-2022 History and physical note ENDOSCOPIC PREPROCEDURE HISTORY AND PHYSICAL HISTORY OF PRESENT ILLNESS: Maury Wagner is a 62 y.o. male seen in the preoprocedure area at [facility]. The indication for endoscopic evaluation includes: History of colon cancer PAST MEDICAL HISTORY: Past Medical History: Diagnosis Date BPH (benign prostatic hyperplasia) Colon adenocarcinoma 04/2018 Stage IIIB s/p L hemicolectomy Colon polyp January 2015 Diverticulosis Essential hypertension, benign Hepatic steatosis Hyperlipidemia SURGICAL HISTORY: Past Surgical History: Procedure Laterality Date COLONOSCOPY FOR COLORECTAL CANCER SCREENING HIGH RISK INDIVIDUAL N/A 04/15/2020 Laterality: N/A; Surgeon: Armani Herring MD; Location: [facility] LIPOMA RESECTION 07/23/2019 Upper back soft tissue mass - lipoma removed by Dr. Shanks at [facility] COLONOSCOPY FOR COLORECTAL CANCER SCREENING HIGH RISK INDIVIDUAL N/A 05/01/2019 Laterality: N/A; Surgeon: Armani Herring MD; Location: [facility] COLECTOMY PARTIAL LAPAROSCOPIC N/A 04/09/2018 Laterality: N/A; Surgeon: Armani Herring MD; Location: [facility] COLONOSCOPY FOR COLORECTAL CANCER SCREENING HIGH RISK INDIVIDUAL N/A 02/14/2018 Laterality: N/A; Surgeon: Armani Herring MD; Location: [facility] SIGMOIDOSCOPY FLEXIBLE FOR COLORECTAL CANCER SCREENING N/A 03/02/2016 Laterality: N/A; Surgeon: Armani Herring MD; Location: [facility] SIGMOIDOSCOPY FLEXIBLE FOR COLORECTAL CANCER SCREENING N/A 02/11/2015 Laterality: N/A; Surgeon: Armani Herring MD; Location: [facility] COLONOSCOPY DIAGNOSTIC January 2015 ROTATOR CUFF REPAIR Left 2010 SINUS SURGERY 1989 ARM SURGERY Left 1969 KNEE REPLACEMENT Right MEDICATIONS: Current Outpatient Medications Medication Instructions amLODIPine (NORVASC) 10 mg, Oral, DAILY atorvastatin (LIPITOR) 20 mg, DAILY lisinopril (PRINIVIL) 10 mg, Oral, DAILY Current Outpatient Medications: amLODIPine 10 MG tablet, Take 10 mg by mouth daily. , Disp: , Rfl: atorvastatin 20 MG Tab, take 20 mg by mouth daily., Disp: , Rfl: lisinopril 10 MG Tab tablet, Take 10 mg by mouth daily., Disp: , Rfl: Current Facility-Administered Medications: fentaNYL (SUBLIMAZE) injection 100 mcg, 100 mcg, Intravenous, As directed PRN, Armani Herring MD flumazenil (ROMAZICON) injection 0.5 mg, 0.5 mg, Intravenous, As directed PRN, Armani Herring MD lactated ringers IV solution, , Intravenous, Continuous, Armani Herring MD lidocaine 1% buffered in sodium bicarbonate 1-8.4 % injection SOSY 1 mL, 1 mL, Intradermal, PRN, Armani Herring MD midazolam (VERSED) injection 10 mg, 10 mg, Intravenous, As directed PRN, Armani Herring MD simethicone in sterile water 40 mg/1000 mL irrigation 1 Application, 1 Application, Irrigation, As directed PRN, Armani Herring MD simethicone undiluted 40 mg/0.6 mL irrigation 1 Application, 1 Application, Irrigation, As directed PRN, Armani Herring MD ALLERGIES: Allergies Allergen Reactions Penicillins Hives Percocet [Oxycodone-Acetaminophen] Hives FOCUSED REVIEW OF SYSTEMS: Negative for nausea, vomiting, abdominal pain and diarrhea VITAL SIGNS: Vitals: 05/18/22 1059 BP: 141/81 Pulse: 84 Resp: 19 Temp: 98.4 degrees F (36.9 degrees C) TempSrc: Infrared SpO2: 95% Height: 1.727 m (5' 8 ) PREPROCEDURE PHYSICAL EXAM: AIRWAY: normal, Mallampati: Class II (complete visualization of the uvula) HEART: Regular PULMONARY: NWB on RA ABDOMEN: Soft, nontender, nondistended ASSESSMENT: Maury Wagner is a 62 y.o. male is ready for the planned procedure. ASA Class: ASA 2 - Patient with mild systemic disease with no functional limitations PLAN: Will plan to proceed with SCREENING COLONOSCOPY using Moderate Sedation. Mp Izquierdo MD, PhD General Surgery PGY-2 Pager: [phone] documented in this encounter [facility] 05-18-2022 Nurse Note Pt and family given discharge paperwork and instructions, awaiting Dr. Herring for discharge. JET. ESCALANTE documented in this encounter [facility] 05-18-2022 Nurse Surgical operation note Pt and family given discharge paperwork and instructions, awaiting Dr. Herring for discharge. JET. ESCALANTE [facility] 02-22-2022 Instructions Linda Denton RN - 02/22/2022 8:33 AM EDT Images from the original note were not included. Return in Jun [address] De Leon, lab and scan prior. Will arrange colonoscopy with Dr. Herring You will receive an automated recording two to three days before your appointment as a reminder. Please call our office, , for any problems or questions you may have. This number is answered 24 hours a day, 7 days a week. We will do our best to return your call the same day (M-F 8am-5pm) or the next day. FMLA, Disability, or other paperwork will need to have the patient portion completed before being submitted to the office. Please include where the forms should be sent once completed. We require 2 weeks (10 business days) to complete all forms. Survey Following your visit today, you may receive a survey via mail or email asking about your experience. We are always looking for ways to improve your visit. Please share your feedback and comments with us- We would love to hear from you! documented in this encounter [facility] 02-22-2022 History of Presen t illness Narrative GI MEDICAL ONCOLOGY CLINIC NOTE Attending: Dr. Hui Aponte Visit Date: 02/22/2022 Chief Complaint: Follow up visit for history of L colon adenocarcinoma, diagnosed 02/2018 Oncologic History: 61 y.o. M with hx of HTN, HLD, colon polyps and subsequent diagnosis of stage IIIB colon cancer. Pt had a colon polyp with adenocarcinoma in 2014. On surveillance colonoscopy 02/14/[address] Herring, he had a mass at the splenic flexure. Biopsy showed invasive adenocarcinoma. Staging CT scans w/o metastatic disease. Underwent laparoscopic L hemicolectomy on 04/09/[address] Herring. Pathology showed moderately differentiated adenocarcinoma w mucinous features, 4.8 cm with extension through muscularis propria, negative margins, (+) LVI, (+) PNI, 3/9 nodes positive, 3 tumor deposits noted, ALBARO. Pt began adjuvant Xelox on 06/19/18 and then transitioned into single agent Xeloda with C5D1 (09/10/18). He completed 4 cycles (3-month) therapy of single agent xeloda in 2018. Pt has been on surveillance since then. Interval History: He presents today by himself for surveillance visit. Doing very well with no new concerns. Appetite good and lost 8 lbs in the past 6 months intentionally, as he has been more active. Energy great and remains active. His surveillance scans recently got cancelled d/t global shortage on CT IV contrast which we anticipate to resolve by the end of May 2022. Denies fevers, chills, worsening dyspnea, chest pain, vision changes, headaches, nausea, vomiting, constipation, diarrhea, melena, hematochezia, urinary changes, new pain, peripheral neuropathy, or rashes. Denies changes in HPI, PMH, PSH, ROS, except as noted above. Medical/Surgical History: Past Medical History: Diagnosis Date BPH (benign prostatic hyperplasia) Colon adenocarcinoma 04/2018 Stage IIIB s/p L hemicolectomy Colon polyp January 2015 Diverticulosis Essential hypertension, benign Hepatic steatosis Hyperlipidemia Past Surgical History: Procedure Laterality Date COLONOSCOPY FOR COLORECTAL CANCER SCREENING HIGH RISK INDIVIDUAL N/A 04/15/2020 Laterality: N/A; Surgeon: Armani Herring MD; Location: [facility] LIPOMA RESECTION 07/23/2019 Upper back soft tissue mass - lipoma removed by Dr. Shanks at [facility] COLONOSCOPY FOR COLORECTAL CANCER SCREENING HIGH RISK INDIVIDUAL N/A 05/01/2019 Laterality: N/A; Surgeon: Armani Herring MD; Location: [facility] COLECTOMY PARTIAL LAPAROSCOPIC N/A 04/09/2018 Laterality: N/A; Surgeon: Armani Herring MD; Location: [facility] COLONOSCOPY FOR COLORECTAL CANCER SCREENING HIGH RISK INDIVIDUAL N/A 02/14/2018 Laterality: N/A; Surgeon: Armani Herring MD; Location: [facility] SIGMOIDOSCOPY FLEXIBLE FOR COLORECTAL CANCER SCREENING N/A 03/02/2016 Laterality: N/A; Surgeon: Armani Herring MD; Location: [facility] SIGMOIDOSCOPY FLEXIBLE FOR COLORECTAL CANCER SCREENING N/A 02/11/2015 Laterality: N/A; Surgeon: Armani Herring MD; Location: [facility] COLONOSCOPY DIAGNOSTIC January 2015 ROTATOR CUFF REPAIR Left 2010 SINUS SURGERY 1989 ARM SURGERY Left 1968 KNEE REPLACEMENT Right Family History: Family History Problem Relation Age of Onset Prostate Cancer Maternal Grandfather 89 Colorectal Polyps Father murdered by spouse Colorectal Cancer Neg Hx Social History: Social History Socioeconomic History Marital status: Tobacco Use Smoking status: Never Smoker Smokeless tobacco: Never Used Substance and Sexual Activity Alcohol use: Yes Alcohol/week: 0.0 standard drinks Comment: socially Drug use: No Social History Narrative Works in [employer] for [employer], both in office and the field. . Review of Systems: Pertinent items are noted in interval history, all other systems were queried and are negative. Past medical, surgical, family, and social histories as well as medications and allergies were all reviewed per RN charting in EMR. Physical Exam: Vitals: BP (!) 141/91 Pulse 76 Temp 97.5 F (36.4 C) (Oral) Resp 16 Ht 1.735 m (5' 8.31 ) Comment: historical Wt 87.3 kg (192 lb 6.4 oz) Comment: with shoes SpO2 96% Comment: room air BMI 28.99 kg/m Smoking Status Never Smoker Patient's Current Performance Status 0 GENERAL: NAD, A&O. Well appearing. HEENT: Normocephalic. Moist mucous membrane, no jaundice. Neck: No LAD Cardiac: RRR, S1 and S2 normal, no murmurs appreciated Chest: CTAB, no wheezes/crackles Abdomen: Soft. Non-tender. Non-distended. Well healed incision noted. LL: No edema Lymphatics: No suspicious cervical, supraclavicular, infraclavicular, axillary or inguinal lymphadenopathy. Skin: no rash or jaundice Neurology: No focal deficits. Psych: Pleasant affect Laboratory data: Lab Results Component Value Date WBC 5.01 02/22/2022 HGB 15.7 02/22/2022 HCT 46.4 02/22/2022 PLATELET 321 02/22/2022 MCV 87.9 02/22/2022 Lab Results Component Value Date SODIUM 140 02/22/2022 POTASSIUM 4.0 02/22/2022 CHLORIDE 106 02/22/2022 CO2 27 02/22/2022 BUN 15 02/22/2022 CREATSERUM 0.89 02/22/2022 Lab Results Component Value Date ALT 26 02/22/2022 AST 25 02/22/2022 ALKPHOS 66 02/22/2022 BILITOTAL 1.3 02/22/2022 BILIDIRECT 0.2 11/13/2018 Lab Results Component Value Date CEA <2.0 02/22/2022 Most Recent Imagin02/04/21 CT CAP IMPRESSION: 1. No evidence for intrathoracic metastatic disease. IMPRESSION: 1. Stable exam status post left hemicolectomy, with no definite CT evidence for recurrent/metastatic disease in the abdomen/pelvis. 2. Exophytic soft tissue density lesion in the lower pole of the right kidney, probable proteinaceous/hemorrhagic cyst, stable since February 2018. 3. Stable bilateral common iliac artery aneurysms. Pathology 04/09/18: ---Final Pathologic Diagnosis--- A. Left colon, excision: - Moderately differentiated adenocarcinoma, 4.8 cm, with mucinous features, arising in the left colon - All margins uninvolved (closest margin = 1.4 cm to the radial margin) - Background high-grade dysplasia/intramucosal carcinoma and dystrophic calcifications - Adenocarcinoma extends through the muscularis propria - Lymphovascular and perineural invasion identified - Three of nine lymph nodes involved by metastasis (3/9); extra-joel extension identified - Tumor deposits = 3 - Background colon with diverticular disease - Additional sections submitted SYNOPTIC REPORT FOR CARCINOMA OF THE COLON AND RECTUM: Procedure: Left colon resection Tumor site: Left colon Gross tumor configuration: Exophytic Tumor size: 4.8 cm Histologic type: Adenocarcinoma Histologic grade: G2: Moderately-differentiated Tumor Extension: Tumor extends through the muscularis propria into the pericolic colorectal fat Macroscopic perforation: Not identified Obstruction: Not reported Tumor borders: Infiltrative Lymphatic/vascular invasion: Identified Perineural invasion: Identified Margins: All involved; closest margin = 1.4 cm to the radial margin; adenocarcinoma 4.9 cm to the closest longitudinal margin and 9.0 cm to the opposite longitudinal margin Lymph nodes: Number examined: 9 Number positive: 3 Extranodal extension: Present Tumor deposits (Discontinuous extramural extension): Number present: 3 Tumor budding: Number of tumor buds in 1 hotspot field (per 0.785 mm2 area): 7.4 (TB=single cells or small clusters less than 5 cells at tumor invasive front; If eyepiece FN=22, divide # of TB in one hotspot 20x field by 1.210 to get 0.785 mm2 area) Score (by H&E evaluation): Intermediate score [5-9 buds] Treatment Effect: No known presurgical therapy Macroscopic intactness of mesorectum: Not applicable Tumor best seen on block(s): A4-7 Normal best seen on block(s): A1-2 pTNM: pT3 N1b Mismatch Repair Protein (MMR) Nuclear Expression by IHC: (present/intact or absent/lost) MLH1: Intact/present PMS2: Intact/present MSH2: Intact/present MSH6: Intact/present Assessment: 61 y.o. male patent with hx of stage IIIB colon adenocarcinoma (MMR proficient) status post left hemicolectomy on 04/09/18 followed by completion of 6-month adjuvant therapy in 2018. He has been on surveillance since then. Hx of Stage IIIB colon adenocarcinoma of descending colon - s/p L colectomy - MMR proficient. pT3N1b = stage IIIB, technically low risk stage three, however, with some aggressive features including <12 nodes sampled, LVI, PNI, 3 tumor deposits present. - s/p adjuvant chemotherapy with 3 months of CAPOX followed by 3 months of Capecitabine alone. - last colonoscopy was done 04/15/20, which was unremarkable. He was recommended to repeat colonoscopy in 2 years (around 04/2022) - Most recent CT scans on January, showed no evidence of disease. - Continues doing well with no new concerns. PS 0. VSS. Lab reviewed, unremarkable. CEA pending during clinic visit Plan: - RTC in 4 months for follow-up and scan review with Dr. De Leon - Case request placed for colonoscopy, which will be due in 04/2022. Pt prefers Dr. Herring to do it. - Pt will contact the office if any concern or question arises in the meantime. Shayan Kraus APRN-PERCUSSION INSTRUMENT REPAIRER documented in this encounter [facility] History of colon cancer Personal history of malignant neoplasm of large intestine [facility] Diagnosis History of colon cancer Personal history of malignant neoplasm of large intestine [facility] Diagnosis History of colon cancer Personal history of malignant neoplasm of large intestine History of colon cancer Personal history of malignant neoplasm of large intestine [facility] Diagnosis Malignant neoplasm of ascending colon- Primary [facility]* Diagnosis Malignant neoplasm of ascending colon [facility] Diagnosis Malignant neoplasm of ascending colon [facility] Diagnosis Malignant neoplasm of colon, unspecified part of colon- Primary [facility] Diagnosis Malignant neoplasm of ascending colon- Primary Acquired complex renal cyst Local recurrence of colon cancer [facility] Diagnosis Malignant neoplasm of ascending colon- Primary [facility] Diagnosis Acquired complex renal cyst Malignant neoplasm of colon, unspecified part of colon [facility] Diagnosis Overlapping malignant neoplasm of colon- Primary [facility] (n[facility]ative)* Consultation (Routine) - New Request Specialty Diagnoses / Procedures Referred By Zelalem jorgensen Referred To Contact Urology Diagnoses Malignant neoplasm of colon, unspecified part of colon Armani Herring MD [address] [address] Referral ID Status Reason Start Date Expiration Date V isits Requested Visits Authorized [id number] New Request 07/11/2023 08/04/2024 1 1 * Endoscopy (Routine) - Auth Not Needed Specialty Diagnoses / Procedures Referred By Zelalem jorgensen Referred To Contact Diagnoses Malignant neoplasm of colon, unspecified part of colon Procedures SCREENING COLONOSCOPY OR COLON CA SCRN NOT HI RSK IND Armani Herring MD [address] [address] Referral ID Status Reason Start Date Expiration Date V isits Requested Visits Authorized [id number] Auth Not Needed 07/11/2023 08/04/2024 1 1 [facility] Consultation (Urgent) - New Request Specialty Diagnoses / Procedures Referred By Contjulia t Referred To Contact Urology Diagnoses Acquired complex renal cyst Aleksandra Gil MD [address] [place] [address] Referral ID Status Reason Start Date Expiration Date V isits Requested Visits Authorized [id number] New Request 07/24/2023 08/17/2024 1 1 [facility] Summary Purpose Family History Cancer Status:Active Comments:colon c ancer--uncle Cerebrovascular Accident Status:Active Comment s:Negative Family History Of. Coronary Artery Disease Status:Active Comments :Negative Family History Of. Diabetes Mellitus Type II Status:Active Commen ts:Mother. Maternal Grandmother. Hypertension Status:Active Comments:Mother. grandparents Cancer Status:Active Comments:colon c ancer--uncle Cerebrovascular Accident Status:Active Comment s:Negative Family History Of. Coronary Artery Disease Status:Active Comments :Negative Family History Of. Diabetes Mellitus Type II Status:Active Commen ts:Mother. Maternal Grandmother. Hypertension Status:Active Comments:Mother. grandparents Advance Directives Documents on File Type Date Recorded Patient Jig Inspector Expl [facility] Health[facility] Power of Protective Officer 06/10/2008 Latest Code Status on File Code Status Date Activated Date Inactivated Comments Full Code 04/11/2018 6:17 AM Latest Code Status on File Code Status Date Activated Date Inactivated Comments Full Code 04/11/2018 6:17 AM Documents on File Type Date Recorded Patient Jig Inspector Expl [facility] Power of Protective Officer 06/10/2008 Latest Code Status on File Code Status Date Activated Date Inactivated Comments Full Code 04/11/2018 6:17 AM Reason for Referral Specialty Diagnoses / Procedures Referred By Contac t Referred To Contact Diagnoses History of colon cancer Procedures CT ABDOMEN/PELVIS WITH CONTRAST CHG CT SCAN,ABDOMENT AND PELVIS,W CONTRAST Shayan Kraus, HEAD BANQUET WAITER/WAITRESS-PERCUSSION INSTRUMENT REPAIRER [address] [place] [address] Referral ID Status Reason Start Date Expiration Date V isits Requested Visits Authorized [id number] New Request 02/22/2022 03/19/2023 1 1 Specialty Diagnoses / Procedures Referred By Contac t Referred To Contact Diagnoses History of colon cancer Procedures CT CHEST WITH CONTRAST CHG DIAGNOSTIC COMPUTED TOMOGRAPHY THORAX W/CONTRAST Shayan Kraus, HEAD BANQUET WAITER/WAITRESS-PERCUSSION INSTRUMENT REPAIRER [address] [place] [address] Referral ID Status Reason Start Date Expiration Date V isits Requested Visits Authorized [id number] New Request 02/22/2022 03/19/2023 1 1 Specialty Diagnoses / Procedures Referred By Contac t Referred To Contact Diagnoses History of colon cancer Procedures CASE REQUEST - ENDOSCOPY Shayan Kraus HEAD BANQUET WAITER/WAITRESS-PERCUSSION INSTRUMENT REPAIRER [address] [place] [id number] Referral ID Status Reason Start Date Expiration Date V isits Requested Visits Authorized [id number] New Request 02/22/2022 03/19/2023 1 1 Specialty Diagnoses / Procedures Referred By Contac t Referred To Contact Diagnoses History of colon cancer Procedures SCREENING COLONOSCOPY OR COLONOSCOPY FLX DX W/COLLJ SPEC WHEN PFRMD Shayan Kraus, HEAD BANQUET WAITER/[facility] [address] [place] [address] Referral ID Status Reason Start Date Expiration Date Visits Re quested Visits Authorized [id number] Closed 03/12/2022 03/19/2023 1 1 Referral ID Status Reason Start Date Expiration Date Visits Re quested Visits Authorized [id number] Closed 02/22/2022 03/19/2023 1 1 Referral ID Status Reason Start Date Expiration Date Visits Re quested Visits Authorized [id number] Closed 02/22/2022 03/19/2023 1 1 Specialty Diagnoses / Procedures Referred By Contac t Referred To Contact Diagnoses Malignant neoplasm of ascending colon Procedures CT ABDOMEN/PELVIS WITH CONTRAST CHG CT SCAN,ABDOMENT AND PELVIS,W CONTRAST Kevin Bonner APRN-[facility] [address] [address] Referral ID Status Reason Start Date Expiration Date V isits Requested Visits Authorized [id number] New Request 12/19/2022 01/13/2024 1 1 Specialty Diagnoses / Procedures Referred By Contac t Referred To Contact Diagnoses Malignant neoplasm of ascending colon Procedures CT CHEST WITH CONTRAST CHG DIAGNOSTIC COMPUTED TOMOGRAPHY THORAX W/CONTRAST Kevin Bonner APRNSAINT MONICA'S [facility] [address] [facility] [address] [place] [address] Referral ID Status Reason Start Date Expiration Date V isits Requested Visits Authorized [id number] New Request 12/19/2022 01/13/2024 1 1 Referral ID Status Reason Start Date Expiration Date Visits Re quested Visits Authorized [id number] Closed 12/19/2022 01/13/2024 1 1 Referral ID Status Reason Start Date Expiration Date Visits Re quested Visits Authorized [id number] Closed 12/19/2022 01/13/2024 1 1 Additional Source Comments (unrecognized sect ion and content) No Status Records FoundNo Status Records FoundNo Status Records FoundNo Status Records Found INFORMATION SOURCE (unrecogn ized section and content) DATE CREATED AUTHOR AUTHOR'S ORGANIZ ATION 07/27/2019 [facility] DATE CREATED AUTHOR AUTHOR'S ORGANIZ ATION 12/31/2022 [facility] DATE CREATED AUTHOR AUTHOR'S ORGANIZ ATION 08/26/2023 [facility] Reason for Visit (unrecogniz ed section and content) Referral ID Status Reason Start Date Expiration Date Visits Requested Visits Authorized [id number] Authorized - Saurabh 08/24/2021 09/18/2022 1 1 Reason Comments Follow-up Specialty Diagnoses / Procedures Referred By Contac t Referred To Contact Diagnoses History of colon cancer Procedures SCREENING COLONOSCOPY OR COLONOSCOPY FLX DX W/COLLJ SPEC WHEN PFRMD Shayan Kraus, HEAD BANQUET WAITER/WAITRESS-PERCUSSION INSTRUMENT REPAIRER [address] [place] [address] Referral ID Status Reason Start Date Expiration Date Visits Re quested Visits Authorized [id number] Closed 03/12/2022 03/19/2023 1 1 Referral ID Status Reason Start Date Expiration Date Visits Re quested Visits Authorized [id number] Closed 02/22/2022 03/19/2023 1 1 Specialty Diagnoses / Procedures Referred By Contac t Referred To Contact Diagnoses History of colon cancer Procedures CT CHEST WITH CONTRAST CHG DIAGNOSTIC COMPUTED TOMOGRAPHY THORAX W/CONTRAST Shayan Kraus, HEAD BANQUET WAITER/WAITRESS-PERCUSSION INSTRUMENT REPAIRER [address] [place] [address] Referral ID Status Reason Start Date Expiration Date Visits Re quested Visits Authorized [id number] Closed 02/22/2022 03/19/2023 1 1 Reason Comments Follow-up Specialty Diagnoses / Procedures Referred By Contac t Referred To Contact Diagnoses Malignant neoplasm of ascending colon Procedures CT ABDOMEN/PELVIS WITH CONTRAST CHG CT SCAN,ABDOMENT AND PELVIS,W CONTRAST Kevin Bonner, HEAD BANQUET WAITER/WAITRESS-[facility] [address] [facility] [address] [address] Referral ID Status Reason Start Date Expiration Date Visits Re quested Visits Authorized [id number] Closed 12/19/2022 01/13/2024 1 1 Specialty Diagnoses / Procedures Referred By Contac t Referred To Contact Diagnoses Malignant neoplasm of ascending colon Procedures CT CHEST WITH CONTRAST CHG DIAGNOSTIC COMPUTED TOMOGRAPHY THORAX W/CONTRAST Kevin Bonner, HEAD BANQUET WAITER/WAITRESS-PERCUSSION INSTRUMENT REPAIRER [address] [address] Referral ID Status Reason Start Date Expiration Date Visits Re quested Visits Authorized [id number] Closed 12/19/2022 01/13/2024 1 1 Reason Comments Labs Only Reason Comments New Patient Reason Comments Follow-up Specialty Diagnoses / Procedures Referred By Contac t Referred To Contact Diagnoses Malignant neoplasm of colon, unspecified part of colon Procedures SCREENING COLONOSCOPY OR COLON CA SCRN NOT HI RSK IND Armani Herring MD [address] [facility] [address] [place] [address] Referral ID Status Reason Start Date Expiration Date Visits Re quested Visits Authorized [id number] Closed 07/11/2023 08/04/2024 1 1 Reason Comments Follow-up Reason Comments New Patient Right cystic renal m ass. Mass has slightly increased in size over the past 5 years. Specialty Diagnoses / Procedures Referred By Zelalem t Referred To Contact Urology Diagnoses Acquired complex renal cyst Aleksandra Gil MD [address] [place] [address] Referral ID Status Reason Start Date Expiration Date V isits Requested Visits Authorized [id number] New Request 07/24/2023 08/17/2024 1 1 Care Teams (unrecognized sec tion and content) Search Engine Optimization Analyst Relationship Specialty Start Date End Date Faheem Mcbride MD [address] [place] [address] [place] [address] PCP - General Family Medicine 02/01/15 Search Engine Optimization Analyst Relationship Specialty Start Date End Date Faehem Mcbride MD [address] [facility] [address] PCP - General Family Medicine 02/01/15 Search Engine Optimization Analyst Relationship Specialty Start Date End Date Faheem Mcbride MD [address] [place] [address] [place] [address] PCP - General Family Medicine 02/01/15 Search Engine Optimization Analyst Relationship Specialty Start Date End Date Faheem Mcbride MD [address] [place] [address] [place] [address] PCP - General Family Medicine 02/01/15 Search Engine Optimization Analyst Relationship Specialty Start Date End Date Faheem Mcbride MD [address] [place] [address] [place] [address] PCP - General Family Medicine 02/01/15 Search Engine Optimization Analyst Relationship Specialty Start Date End Date Faheem Mcbride MD [address] [place] [address] [place] [address] PCP - General Family Medicine 02/01/15 Search Engine Optimization Analyst Relationship Specialty Start Date End Date Faheem Mcbride MD [address] [place] [address] [place] [address] PCP - General Family Medicine 02/01/15 Search Engine Optimization Analyst Relationship Specialty Start Date End Date Faheem Mcbride MD [address] [place] [address] [place] [id number] PCP - General Family Medicine 02/01/15 Search Engine Optimization Analyst Relationship Specialty Start Date End Date Faheem Mcbride MD [address] [facility] [place] [phone] PCP - General Family Medicine 02/01/15 Search Engine Optimization Analyst Relationship Specialty Start Date End Date Faheem Mcbride MD [address] [facility] [place] [phone] PCP - General Family Medicine 02/01/15 Search Engine Optimization Analyst Relationship Specialty Start Date End Date Faheem Mcbride MD [address] [facility] [place] [id number] PCP - General Family Medicine 02/01/15 Search Engine Optimization Analyst Relationship Specialty Start Date End Date Faheem Mcbride MD [address] [facility] [place] [phone] PCP - General Family Medicine 02/01/15 FOR RECORDS PERTAINING TO PATIENTS WHO ARE OR HAVE BEEN ENROLLED IN A CHEMICAL DEPENDENCY/SUBSTANCEABUSE PROGRAM, SOME INFORMATION MAY BE OMITTED. This clinical summary was aggregated from multiple sources. Caution should be exercised in using it in the provision of clinical care. This summary normalizes information from multiple sources, and as a consequence, information in this document may materially change the coding, format and clinical context of patient data. In addition, data may be omitted in some cases. CLINICAL DECISIONS SHOULD BE BASED ON THE PRIMARY CLINICAL RECORDS. [facility]. provides no warranty or guarantee of the accuracy or completeness of information in this document.
== END 2023-11-09 17:49 | disposition home or self-care (01) ==
PROVIDERS: Emergency Provider Emergency Medicine; PCP Family Medicine; Visit Provider Emergency Medicine
DX: K92.2 Gastrointestinal hemorrhage, unspecified (principal); Z85.038 Personal history of other malignant neoplasm of large intestine; Z90.49 Acquired absence of other specified parts of digestive tract; E78.00 Pure hypercholesterolemia, unspecified; I10 Essential (primary) hypertension
CPT/HCPCS: 74177; 80048; 85025; 85610; 85730; 96360; 96361; 99283; J7030; Q9967; A4216

== ENCOUNTER → 2024-06-16 | Outpatient (CLI) | payer BC, SELFPAY | END | disposition home or self-care (01) | PROVIDERS: PCP Family Medicine | DX: C18.6 Malignant neoplasm of descending colon (principal) ==

== ENCOUNTER 2025-02-23 11:22 | Inpatient (IN) | payer MEDICARE, OTHER, SELFPAY ==
[2025-02-23] VITALS (26 sets, daily range): BP systolic 92–122; BP diastolic 65–91; PULSE 61–107; RESP 12–67; TEMP 35.8–36.3; O2SAT 92–99; BMI 25.7; BMI 25.2
[2025-02-23] MEDS: DiphenhydrAMINE 50 MG/ML Syringe 25 MG IV ×2 (12:08→22:05)
[2025-02-23] MEDS: MethylPREDNISolone 125 MG/2 ML Vial IV (12:08)
[2025-02-23] MEDS: 0.9% Normal Saline (1000mL) 1,000 ML 999 ML IV (12:08)
[2025-02-23 12:23] LABS: Absolute Lymphocyte Count 1.25 X10^3/uL (0.83-4.51); Basophil# 0.06 X10^3/uL; Basophil% 0.8 % (0-1); Eosinophil# 0.07 X10^3/uL; Hematocrit 34.7 % (40-54); Hemoglobin 11.7 g/dL (13.0-16.5); Lymphocyte # 1.25 X10^3/ul (0.83-4.51); Lymphocyte % 17.7 % (19-41); Mean Corp Hgb Conc 33.7 g/dL (32-36); Mean Corpuscular Hgb 31.4 pg (27.0-32.0); Mean Platelet Vol. 8.7 fl (6.2-12.0); Monocyte# 0.61 X10^3/uL; Monocyte% 8.6 % (0-10); NRBC Flagged by Analyzer 0 % (0-5); Neutrophil # 5.02 X10^3/uL (2.7-7.7); Neutrophil % 71.2 % (47-70); Platelet Count 596 K/mm3 (150-450); RBC Distribution Width CV 17.1 % (11.6-14.6); RBC Distribution Width SD 58.8 fl (35.1-43.9); Red Blood Count 3.73 M/mm3 (4.6-6.2); White Blood Count 7.1 K/mm3 (4.4-11.0)
[2025-02-23 12:37] LABS: AST(SGOT) 49 U/L (<=37); Alanine Aminotransfer ALT/SGPT 74 U/L (<=46); Albumin, Serum 3.6 g/dL (3.4-4.8); Alkaline Phosphatase 87 U/L (40-129); Anion Gap 12 (5-15); BUN 13 mg/dL (4-19); BUN/Creat Ratio 15.6 RATIO (10-20); Calcium,Total 9.3 mg/dL (7.6-11.0); Carbon Dioxide 24.4 mmol/L (21.0-32.0); Chloride 104 mmol/L (98-108); Creatinine, Serum 0.84 mg/dL (0.70-1.20); EST Glomerular Filtration Rate 97 (>60); Estimated Creatinine Clearance 91.73 ml/min (50-250); Globulin 3.7 g/dL (2.2-4.2); Glucose 96 mg/dL (70-99); Potassium 3.8 mmol/L (3.3-5.1); Protein, Total 7.3 g/dL (5.9-8.4); Sodium Level 141 mmol/L (133-145); Total Bilirubin 0.62 mg/dL (0.00-1.30)
--- NOTE | 2025-02-23 13:48 | EX.ED.DYSGE1 ---
HPI History of Present Illness Chief Complaint: Allergic Reaction Narrative Narrative: Patient is a 64-year-old male with a past medical history of colon cancer that they state is not curable and is under active trial medications through [facility], hypertension, hypercholesteremia who presented to the emergency department the chief complaint of lip swelling. According to the patient he woke up around 4 AM noted that he was restroom and went back to bed. He states that by 7 AM when he woke up he noted he had significant swelling in his face that slowly progressively worsened through the morning early afternoon prompting him to come here for further evaluation management. Patient states otherwise he has been feeling fine he states that he is swallowing breathing okay. Patient notes that he has not changed anything out of his medications daily. [facility] Medical History Neuropathy High cholesterol Hypertension Cancer of descending colon Home Medications ?Medication ?Instructions ?Recorded ?Last Taken ?Type amlodipine 10 mg tablet 10 mg PO QHS 02/23/25 02/22/25 History atorvastatin 20 mg tablet 20 mg PO QHS 02/23/25 02/22/25 History clindamycin phosphate 1 % topical 1 applic topical BID 02/23/25 02/22/25 History gel dexamethasone 0.5 mg/5 mL oral 1 mg PO Q12H 02/23/25 02/22/25 History solution doxycycline hyclate 100 mg tablet 100 mg PO DAILY 02/23/25 02/22/25 History granisetron HCl 1 mg tablet 1 mg PO DAILY 02/23/25 02/23/25 History lisinopril 10 mg tablet 10 mg PO DAILY 02/23/25 02/22/25 History potassium chloride 20 mEq 10 meq PO BID 02/23/25 02/22/25 History tablet,extended release Allergy/AdvReac Type Severity Reaction Status Date / Time acetaminophen (From Percocet) Allergy Hives Verified 02/23/25 11:25 oxycodone (From Percocet) Allergy Hives Verified 02/23/25 11:25 Penicillins Allergy Hives Verified 02/23/25 11:25 Surgical History S/P left colectomy Social History Smoking Status: Never smoker ROS ROS ED ROS Narrative Constitutional: Denies fevers, chills, headaches, lightness, dizziness Eyes: Denies change in vision double vision blurry vision Ears nose and throat: Complains of lip swelling as noted above, states that he is swallowing and breathing normal for himself Cardiovascular: Denies chest pain or palpitations Respiratory: Denies coughing wheezing shortness of breath Abdomen: Denies abdominal pain nausea vomit diarrhea : Denies urinary symptoms Neurological: Denies numbness, weakness, tingling Musculoskeletal: Denies back pain Skin: Complains of lip swelling as noted above EXAM Physical Exam Narrative Exam Narrative: General: Patient lying in bed rest comfortably did not appear to be in acute distress Head: Atraumatic, normocephalic Eyes ears, nose, throat: Patient has upper and lower lip swelling noted, posterior pharynx patent, uvula midline, no swelling noted, no sublingual swelling noted Neck: Soft, supple, trachea midline, no concern for Chas's angina Cardiovascular: Regular rate and rhythm no murmurs gallops rubs noted Respiratory: Clear to auscultation bilaterally no rales rhonchi or wheeze noted Abdomen: Soft, nondistended, tender to palpation, bowel sounds present x 4 Extremities: +5/5 strength noted in the bilateral upper and lower extremities, radial pulse +2/4 in bilateral extremities Neurological: Patient follow commands knew that he was at [facility] year is 2024 Skin: Warm, dry, tact no rashes or lesions noted Const Vital Signs: 02/23/25 11:23 02/23/25 12:23 02/23/25 12:27 Temperature 97.1 F L Temperature Source Oral Pulse Rate 107 H 78 82 Respiratory Rate 18 19 H 36 H Respiratory Pattern Blood Pressure 121/86 H 115/89 H Blood Pressure Mean 97 97 Pulse Ox 95 95 95 Oxygen Delivery Method Room Air Room Air Fraction of Inspired Oxygen (FIO2) 02/23/25 12:30 02/23/25 12:45 02/23/25 13:16 Temperature Temperature Source Pulse Rate 79 81 87 Respiratory Rate 20 H 24 H 14 Respiratory Pattern Blood Pressure 122/84 H 99/72 120/80 Blood Pressure Mean 96 78 93 Pulse Ox 93 94 Oxygen Delivery Method Room Air Fraction of Inspired Oxygen (FIO2) 02/23/25 13:32 02/23/25 13:45 02/23/25 14:00 Temperature Temperature Source Pulse Rate 93 75 80 Respiratory Rate 25 H 17 19 H Respiratory Pattern Blood Pressure 116/81 H Blood Pressure Mean 92 Pulse Ox 94 92 Oxygen Delivery Method Room Air Fraction of Inspired Oxygen (FIO2) 02/23/25 14:32 02/23/25 14:45 02/23/25 15:00 Temperature Temperature Source Pulse Rate 92 87 78 Respiratory Rate 17 12 16 Respiratory Pattern Normal Blood Pressure 114/80 104/74 Blood Pressure Mean 91 84 Pulse Ox 99 96 98 Oxygen Delivery Method Mechanical Ventilator Mechanical Ventilator Fraction of Inspired Oxygen (FIO2) 40 MDM MDM MDM Narrative Medical decision making narrative: Patient is a 64-year-old male who presented to the emergency department chief complaint of lip swelling. On the differential diagnose includes but not limited to angioedema from lisinopril, allergic reaction. Once workup up is obtained reviewed he will be reevaluated. I called and spoke with the patient's physician Dr. Becerril at [facility] and he believes that the medications that he is currently on for his chemotherapy and drugs should not be causing the symptoms is likely probably related to his lisinopril. Patient was given Solu-Medrol and Benadryl and will be observed. Patient's CBC reviewed showed no evidence leukocytosis white blood count normal 7.1, hemoglobin 0.7, platelet count was noted be 596. Patient sodium was 141, potassium normal 3.8, creatinine normal at 0.84. Patient AST and ALT are 49 and 74 respectively. Reevaluation of patient after observation here in the emergency department he has had worsening swelling and started to have some changes in voice therefore I discussed with him and his at bedside about intubation. They were ultimately agreeable with this plan. Patient was intubated see procedure note for further details. Will discuss case with hospitalist for admission. Discussed case with hospitalist Dr. Pineda who accept patient for admission. I discussed with the patient's at bedside as well after intubation and updated on the plan. She is agreeable to plan all question concerns answered. Lab Data Labs: Laboratory Results - last 24 hr 02/23/25 11:26 WBC 7.1 RBC 3.73 L Hgb 11.7 L Hct 34.7 L MCV 93.0 MCH 31.4 MCHC 33.7 RDW Std Deviation 58.8 H RDW Coeff of Megan 17.1 H Plt Count 596 H MPV 8.7 Immature Gran % (Auto) 0.700 Neut % (Auto) 71.2 H Lymph % (Auto) 17.7 L [place] % (Auto) 8.6 Eos % (Auto) 1.0 Baso % (Auto) 0.8 Absolute Neuts (auto) 5.0 Absolute Lymphs (auto) 1.25 Nucleated RBC % 0 Sodium 141 Potassium 3.8 Chloride 104 Carbon Dioxide 24.4 Anion Gap 12 BUN 13 Creatinine 0.84 Estim Creat Clear Calc 91.73 Est GFR (MDRD) Non-Af 97 BUN/Creatinine Ratio 15.6 Glucose 96 Calcium 9.3 Total Bilirubin 0.62 AST 49 H ALT 74 H Alkaline Phosphatase 87 Total Protein 7.3 Albumin 3.6 Globulin 3.7 Albumin/Globulin Ratio 1.0 Radiography Diagnostic Testing: Clinical Impression(s) from Imaging Studies Chest X-Ray 02/23/25 14:40 IMPRESSION: The tip of the endotracheal tube is at 7.5 cm proximal the calos. Reading Location: [facility] Discharge Plan Triage Chief Complaint: Allergic Reaction ED Provider: Thor Bates Dx/Rx/DC Orders Clinical Impression: Angioedema, Adverse effect of lisinopril Prescriptions: No Action lisinopril 10 mg tablet 10 mg PO DAILY atorvastatin 20 mg tablet 20 mg PO QHS granisetron HCl 1 mg tablet 1 mg PO DAILY dexamethasone 0.5 mg/5 mL solution 1 mg PO Q12H amlodipine 10 mg tablet 10 mg PO QHS doxycycline hyclate 100 mg tablet 100 mg PO DAILY potassium chloride 20 mEq tablet extended release 10 meq PO BID clindamycin phosphate 1 % gel 1 applic topical BID Primary Care Provider: Faheem Mcbride Referrals: Faheem Mcbride MD [Primary Care Provider] - Print Language: Hebrew Disposition Disposition: Acute Care Hospital [facility]
--- NOTE | 2025-02-23 14:21 | ED.RN ---
PT. MOVED TO ROOM 3. REPORT GIVEN TO Elvis PITTS
[2025-02-23] MEDS: Etomidate 20 MG/10 ML Vial IV (14:30)
[2025-02-23] MEDS: Succinylcholine Chloride 200 MG/10 ML SYRINGE 100 MG IV (14:31)
[2025-02-23] MEDS: Midazolam 5 MG/ML Syringe 4 MG IV (14:35)
[2025-02-23] MEDS: fentaNYL 100 MCG/2 ML Ampul IV (14:35)
[2025-02-23] MEDS: Propofol 10MG/Ml 1,000 MG/100 ML Bottle 4.9 MG CONT INF (14:38)
[2025-02-23] MEDS: Propofol 200 MG/20 ML Vial 40 MG IV BOLUS (14:39)
--- NOTE | 2025-02-23 14:40 | RAD_ITS ---
PROCEDURE: CHEST 1 VIEW (PORTABLE) 02/23/2025 REASON FOR EXAM: S/P INTUBATION TECHNIQUE: Frontal view of the chest. COMPARISON: None FINDINGS: Hardware: Endotracheal tube. The tip of the endotracheal tube is at 7.5 cm proximal the calos. A right-sided port a catheter is seen with the tip in the right atrium. EKG electrodes are seen. Heart: Unremarkable Lungs: No focal infiltrate is seen. Bones: Degenerative changes are identified within the thoracic spine. Other: RAD/Chest 1 View (Portable) IMPRESSION: The tip of the endotracheal tube is at 7.5 cm proximal the calos. Reading Location: [place] [address]
[2025-02-23] MEDS: fentaNYL drip 100 ML 10 MCG CONT INF (15:05)
[2025-02-23 15:52] LABS: Allen Test Positive; Base Excess 3 mmol/L (-2 to +2); Blood Gas Specimen Type ART; Mode AC; O2 Delivery Device Adult Vent; PEEP 5; PO2 120 mmHG (75-100); RR 14; SITE R Brach; SO2 99 % (95-99); Total Carbon Dioxide 28 mmol/L; pCO2 41.6 mmHg (35-45); pH 7.42 (7.35-7.45)
--- NOTE | 2025-02-23 15:53 | PCM.HP.STD ---
HPI - General General Date of Admission: 02/23/25 Date of Service: 02/23/25 Chief Complaint: Lip swelling HPI Narrative SHEILA FRY, is a 64-year-old male with colon cancer under active trial medications through [facility] who presented to [facility] 02/23/2025 due to lip swelling. Patient woke up at 4 AM and noticed the swelling but went back to bed, by 7 AM he had significantly increased swelling to his face that continued to progress so he came to the ED. In the ED patient given steroids and Benadryl but had progression of his symptoms so after risks and benefits discussion he was intubated by the ED physician. ED physician did speak with his oncologist and it was felt that this was due to his lisinopril and not an effect of one of his chemo medications. Hospitalist contacted for admission. Patient evaluated with at bedside and reports before the swelling today he had not been voicing any complaints. Does have some sunburn on his hands with peeling he has the medication is caused sun sensitivity but notes that it is actually improving and his physicians are aware [facility] Medical History (Updated 02/23/25 @ 15:[address] Lucero Pineda MD) Cancer of descending colon High cholesterol Hypertension Neuropathy Home Medications ?Medication ?Instructions ?Recorded ?Last Taken ?Type amlodipine 10 mg tablet 10 mg PO QHS 02/23/25 02/22/25 History atorvastatin 20 mg tablet 20 mg PO QHS 02/23/25 02/22/25 History clindamycin phosphate 1 % topical 1 applic topical BID 02/23/25 02/22/25 History gel dexamethasone 0.5 mg/5 mL oral 1 mg PO Q12H 02/23/25 02/22/25 History solution doxycycline hyclate 100 mg tablet 100 mg PO DAILY 02/23/25 02/22/25 History granisetron HCl 1 mg tablet 1 mg PO DAILY 02/23/25 02/23/25 History lisinopril 10 mg tablet 10 mg PO DAILY 02/23/25 02/22/25 History potassium chloride 20 mEq 10 meq PO BID 02/23/25 02/22/25 History tablet,extended release Allergy/AdvReac Type Severity Reaction Status Date / Time acetaminophen (From Percocet) Allergy Hives Verified 02/23/25 11:25 oxycodone (From Percocet) Allergy Hives Verified 02/23/25 11:25 Penicillins Allergy Hives Verified 02/23/25 11:25 Surgical History S/P left colectomy Social History Smoking Status: Never smoker ROS ROS Narrative Unable to obtain secondary to intubation and sedation Vital Signs Vital Signs Vital Signs: 02/23/25 11:23 02/23/25 12:23 02/23/25 12:27 Temperature 97.1 F L Temperature Source Oral Pulse Rate 107 H 78 82 Respiratory Rate 18 19 H 36 H Respiratory Pattern Blood Pressure 121/86 H 115/89 H Blood Pressure Mean 97 97 Pulse Ox 95 95 95 Oxygen Delivery Method Room Air Room Air Fraction of Inspired Oxygen (FIO2) 02/23/25 12:30 02/23/25 12:45 02/23/25 13:16 Temperature Temperature Source Pulse Rate 79 81 87 Respiratory Rate 20 H 24 H 14 Respiratory Pattern Blood Pressure 122/84 H 99/72 120/80 Blood Pressure Mean 96 78 93 Pulse Ox 93 94 Oxygen Delivery Method Room Air Fraction of Inspired Oxygen (FIO2) 02/23/25 13:32 02/23/25 13:45 02/23/25 14:00 Temperature Temperature Source Pulse Rate 93 75 80 Respiratory Rate 25 H 17 19 H Respiratory Pattern Blood Pressure 116/81 H Blood Pressure Mean 92 Pulse Ox 94 92 Oxygen Delivery Method Room Air Fraction of Inspired Oxygen (FIO2) 02/23/25 14:32 02/23/25 14:45 02/23/25 15:00 Temperature Temperature Source Pulse Rate 92 87 78 Respiratory Rate 17 12 16 Respiratory Pattern Normal Blood Pressure 114/80 104/74 Blood Pressure Mean 91 84 Pulse Ox 99 96 98 Oxygen Delivery Method Mechanical Ventilator Mechanical Ventilator Fraction of Inspired Oxygen (FIO2) 40 Weight Weight: 81.374 kg Body Mass Index (BMI) 25.7 Physical Exam Narrative General: Intubated and sedated HEENT: Atraumatic, normocephalic Eyes: Eyes closed, no spontaneous opening Neck: Supple Respiratory: Mechanically ventilated Cardiovascular: Regular rate and rhythm GI: Soft, nontender, nondistended Extremities: No edema Musculoskeletal: Presently sedated and not moving extremities spontaneously Neuro: Unable to participate in neuro exam secondary to intubated and sedated Skin: No rashes appreciated Psych: Unable to cooperate secondary to intubated and sedated Results Lab / Micro Data 02/23/25 11:26 02/23/25 11:26 Labs: Laboratory Results - last 24 hr 02/23/25 11:26: WBC 7.1, RBC 3.73 L, Hgb 11.7 L, Hct 34.7 L, MCV 93.0, MCH 31.4, MCHC 33.7, RDW Std Deviation 58.8 H, RDW Coeff of Megan 17.1 H, Plt Count 596 H, MPV 8.7, Immature Gran % (Auto) 0.700, Neut % (Auto) 71.2 H, Lymph % (Auto) 17.7 L, Hunt % (Auto) 8.6, Eos % (Auto) 1.0, Baso % (Auto) 0.8, Absolute Neuts (auto) 5.0, Absolute Lymphs (auto) 1.25, Nucleated RBC % 0, Sodium 141, Potassium 3.8, Chloride 104, Carbon Dioxide 24.4, Anion Gap 12, BUN 13, Creatinine 0.84, Estim Creat Clear Calc 91.73, Est GFR (MDRD) Non-Af 97, BUN/Creatinine Ratio 15.6, Glucose 96, Calcium 9.3, Total Bilirubin 0.62, AST 49 H, ALT 74 H, Alkaline Phosphatase 87, Total Protein 7.3, Albumin 3.6, Globulin 3.7, Albumin/Globulin Ratio 1.0 ABG Data ABG results: ABG 02/23/25 15:48 Specimen Type ART Sample Site R Brach pH 7.42 Bicarbonate Actual 27.0 H Total CO2 28 Base Excess 3 H O2 Saturation 99 O2 % 40.0 ABG pCO2 41.6 ABG pO2 120 H Xiang Test Positive Respiration Rate 14 O2 Delivery Device Adult Vent Vent Mode AC Tidal Volume 450.0 POC PEEP 5 Imaging Radiology Impression Chest X-Ray 02/23/25 14:40 IMPRESSION: The tip of the endotracheal tube is at 7.5 cm proximal the calos. Reading Location: [place] [address] Assessment & Plan Assessment/Plan (1) Angioedema: (2) Cancer of descending colon: PLAN: Plan # Angioedema requiring intubation - Patient's oncologist contacted by ED physician who suspected that this was due to lisinopril and not his cancer medication - DC lisinopril - Steroids - Famotidine - Coating Engineer consult # Colon cancer - Reportedly incurable, is presently on an experimental agent - Patient's oncologist does not think this was the cause of his symptoms - Will continue this if it is able to be given #Hypertension - Hold home antihypertensives as patient is on propofol drip and blood pressure soft #DVT ppx: Lovenox subcu Lucero Pineda MD Time spent in the patient's overall evaluation, decision-making process, review of diagnostic data, adjustment of management, discussion with other providers, nursing and ancillary staff involved in patient's care documentation, 58 Minutes Charges/Coding Visit Charges Inpatient E&M: 72308 Init Hosp L2
--- NOTE | 2025-02-23 15:54 | ED.RN ---
this rn obtained a verbal order from dr. brady to hold off on OG tube d/t pts inability to tolerate. pt vitals are stable and representing pt is comfortable, despite pts ability to allow og to advanced.
--- NOTE | 2025-02-23 16:00 | RAD_ITS ---
PROCEDURE: CHEST 1 VIEW (PORTABLE) 02/23/2025 REASON FOR EXAM: S/P ET TUBE ADVANCEMENT 2 CM TECHNIQUE: Frontal view of the chest. COMPARISON: 02/23/2025 FINDINGS: Hardware: Endotracheal tube does not appear significantly changed in position remaining approximately 7.5 cm proximal to the calos within the trachea. Heart: Heart normal size. Right central venous port in good position terminating at the superior vena cava right atrial junction. Lungs: No infiltrates seen. No pleural effusion seen. Bones: Osseous structures grossly appear intact. Other: No pneumothorax seen. RAD/Chest 1 View (Portable) IMPRESSION: 1. Right central venous port good position. 2. Endotracheal tube not significantly changed remaining approximately 7.5 cm from calos. 3. No infiltrates seen. Reading [facility]
[2025-02-23 16:25] LABS: CPK Total, Creatine Kinase 275 U/L (24-195); Triglycerides 82 mg/dL
--- NOTE | 2025-02-23 16:50 | CM.ED ---
Social Work Patients was noted to be alone in waiting room and tearful, SW was asked to speak with her. SW met with patients and introduced self. explained to SW that patient had been diagnosed with cancer several years ago. Emotional support provided. No further needs at this time. Laura Machado, MARKETING ANALYTICS LEAD, [employer]ER CARE CASE MANAGER
--- NOTE | 2025-02-23 17:21 | PCMCONS.TICU ---
HPI Consult Data Date of Consult: 02/23/25 HPI Narrative Reason for Consultation: Angioedema HPI Narrative: 64 yo wm with hx of Colon Ca(in clinical trial) presents with angioedema. Noted lip swelling earlier this am. Progressed. Came to ED and given steroid + [id number]. Symptoms progressed thus intubated for airway protection. notes prior episode 1 year ago with more facial swelling that resolved with benadryl. Oncologist called and noted no hx of adverse rxns from trial drug as it relates to angioedema. Pt has been on MEEK for years. [facility] Medical History (Updated 02/23/25 @ 15:[address] Lucero Pineda MD) Neuropathy High cholesterol Hypertension Cancer of descending colon Home Medications ?Medication ?Instructions ?Recorded ?Last Taken ?Type amlodipine 10 mg tablet 10 mg PO QHS 02/23/25 02/22/25 History atorvastatin 20 mg tablet 20 mg PO QHS 02/23/25 02/22/25 History clindamycin phosphate 1 % topical 1 applic topical BID 02/23/25 02/22/25 History gel dexamethasone 0.5 mg/5 mL oral 1 mg PO Q12H 02/23/25 02/22/25 History solution doxycycline hyclate 100 mg tablet 100 mg PO DAILY 02/23/25 02/22/25 History granisetron HCl 1 mg tablet 1 mg PO DAILY 02/23/25 02/23/25 History lisinopril 10 mg tablet 10 mg PO DAILY 02/23/25 02/22/25 History potassium chloride 20 mEq 10 meq PO BID 02/23/25 02/22/25 History tablet,extended release Allergy/AdvReac Type Severity Reaction Status Date / Time acetaminophen (From Percocet) Allergy Hives Verified 02/23/25 11:25 oxycodone (From Percocet) Allergy Hives Verified 02/23/25 11:25 Penicillins Allergy Hives Verified 02/23/25 11:25 Surgical History S/P left colectomy Social History Smoking Status: Never smoker ROS Review of Systems ROS Unobtainable: due to endotracheal tube Objective Data Objective Data Vital Signs: Vital Signs Last response Temperature 36.3 C L 02/23/25 17:13 Temperature Source Core 02/23/25 17:13 Pulse Rate 74 02/23/25 17:13 Respiratory Rate 14 02/23/25 17:13 Respiratory Pattern Normal 02/23/25 14:32 Blood Pressure 98/70 02/23/25 17:13 Blood Pressure Mean 79 02/23/25 17:13 Blood Pressure Source Monitor 02/23/25 17:13 Blood Pressure Position Semi-Fowlers 02/23/25 17:13 Blood Pressure Location Left Arm 02/23/25 17:13 Pulse Ox 95 02/23/25 17:13 Oxygen Delivery Method Mechanical Ventilator 02/23/25 17:13 Fraction of Inspired Oxygen (FIO2) 30 02/23/25 17:13 I&O: I&O Last 24 Hours 02/22/25 02/23/25 02/23/25 23:59 11:59 23:59 Intake Total 1001.06 / 1001.06 Balance 1001.06 / 1001.06 I&O: Total Stay 02/23/25 11:22 thru 02/23/25 17:13 Intake Total 1001.06 Balance 1001.06 Current Meds Ordered / Administered: Current meds ordered / Administered Generic Name Dose Route Start Last Admin Trade Name Freq PRN Reason Stop Dose Admin Albuterol Sulfate 2.5 mg 02/23/25 16:45 Albuterol 2.5 Mg/3 Ml Vial.Neb. INHALATION Q2H PRN PRN SOB &/OR WHEEZING Chlorhexidine Gluconate 15 ml 02/23/25 22:00 Chlorhexidine 15 Ml PO BID MADIHA Diphenhydramine HCl 25 mg 02/23/25 22:00 Diphenhydramine 50 Mg/Ml Syringe IV Q12 MADIHA Enoxaparin Sodium 40 mg 02/24/25 10:00 Enoxaparin 40 Mg/0.4 Ml Syringe SC DAILY MADIHA Propofol 1,000 mg in 100 mls @ 4.882 mls/hr 02/23/25 14:20 02/23/25 14:48 Diprivan CONT INF 20 mcg/kg/min .Q12H MADIHA 9.8 mls/hr Titration Protocol 10 MCG/KG/MIN Fentanyl 100 mls @ 10 mls/hr 02/23/25 14:50 02/23/25 15:05 CONT INF 100 mcg/hr UD MADIHA 10 mls/hr Administration Protocol 100 MCG/HR Famotidine 20 mg/ Sodium 10 mls @ 300 mls/hr 02/23/25 22:00 Chloride IV Q12 MADIHA Lactated Ringer's 1,000 mls @ 60 mls/hr 02/23/25 17:30 IV .[id number] MADIHA Methylprednisolone 40 mg 02/23/25 22:00 Methylprednisolone 40 Mg/Ml Vial IV Q8 MADIHA Senna/Docusate Sodium 2 tablet 02/23/25 16:47 Senna/Docusate Sodium 1 Tablet GT BID PRN PRN Constipation Physical Exam Narrative intubated, sedated pupils = ETT in place, tongue not protruding, lips swoller CV: RRR Chest: CTA b Abd: soft, nt Ext: no c/e/c Skin : no rashes Lab / Micro Data 02/23/25 11:26 02/23/25 11:26 Labs: Laboratory Results - last 24 hr 02/23/25 11:26: WBC 7.1, RBC 3.73 L, Hgb 11.7 L, Hct 34.7 L, MCV 93.0, MCH 31.4, MCHC 33.7, RDW Std Deviation 58.8 H, RDW Coeff of Megan 17.1 H, Plt Count 596 H, MPV 8.7, Immature Gran % (Auto) 0.700, Neut % (Auto) 71.2 H, Lymph % (Auto) 17.7 L, [place] % (Auto) 8.6, Eos % (Auto) 1.0, Baso % (Auto) 0.8, Absolute Neuts (auto) 5.0, Absolute Lymphs (auto) 1.25, Nucleated RBC % 0, Sodium 141, Potassium 3.8, Chloride 104, Carbon Dioxide 24.4, Anion Gap 12, BUN 13, Creatinine 0.84, Estim Creat Clear Calc 91.73, Est GFR (MDRD) Non-Af 97, BUN/Creatinine Ratio 15.6, Glucose 96, Calcium 9.3, Total Bilirubin 0.62, AST 49 H, ALT 74 H, Alkaline Phosphatase 87, Total Creatine Kinase 275 H, Total Protein 7.3, Albumin 3.6, Globulin 3.7, Albumin/Globulin Ratio 1.0, Triglycerides 82 ABG Data ABG results: ABG 02/23/25 15:48 Specimen Type ART Sample Site R Brach pH 7.42 Bicarbonate Actual 27.0 H Total CO2 28 Base Excess 3 H O2 Saturation 99 O2 % 40.0 ABG pCO2 41.6 ABG pO2 120 H Xiang Test Positive Respiration Rate 14 O2 Delivery Device Adult Vent Vent Mode AC Tidal Volume 450.0 POC PEEP 5 Imaging Radiology Impression Chest X-Ray 02/23/25 14:40 IMPRESSION: The tip of the endotracheal tube is at 7.5 cm proximal the calos. Reading Location: [facility] Chest X-Ray 02/23/25 16:00 IMPRESSION: 1. Right central venous port good position. 2. Endotracheal tube not significantly changed remaining approximately 7.5 cm from calos. 3. No infiltrates seen. Reading [facility] Assessment and Plan . Assessment and plan: 1. Angioedema: Presumed 2/2 MEEK. Continue steroids + H1/H2 blockade. 2. Resp Failure: acute/hypoxemic. 2/2 Airway protection. Vent check made: AC 14/450/30/5. Hopefully wean in am 3. Sedation: wean down fent gtt to lower dose. Continue propofol. 4. FEN: IVFs 5. Colon Ca 6. Px: Leda Izquierdo MD Critical Care Time: 60 minutes The entirety of this encounter was done via Telemedicine
[2025-02-23] MEDS: Lactated Ringers 1,000 ML 60 ML IV (18:24)
--- NOTE | 2025-02-23 21:40 | RAD_ITS ---
PROCEDURE: ABDOMEN SINGLE VIEW; CHEST 1 VIEW (PORTABLE) 02/23/2025 REASON FOR EXAM: OG PLACEMENT; OG AND ETT PLACEMENT TECHNIQUE: Frontal views of the chest and abdomen. COMPARISON: Chest radiograph 02/23/2025 FINDINGS: Endotracheal tube tip now measures 4.5 cm proximal to the calos. Enteric tube traverses in the midline with tip and side port projecting over the left upper abdomen. Right chest port tip terminates near the expected location of the right atrium, unchanged. Nonobstructive appearance of the visualized bowel gas. Linear atelectasis or scarring at the left lung base.. Degenerative changes of the spine with leftward curvature of the lumbar spine. RAD/Chest 1 View (Portable) IMPRESSION: Tubes and lines positioned as detailed above. No acute cardiopulmonary abnorma lity. Reading Location: [id number]
--- NOTE | 2025-02-23 21:40 | RAD_ITS ---
PROCEDURE: ABDOMEN SINGLE VIEW; CHEST 1 VIEW (PORTABLE) 02/23/2025 REASON FOR EXAM: OG PLACEMENT; OG AND ETT PLACEMENT TECHNIQUE: Frontal views of the chest and abdomen. COMPARISON: Chest radiograph 02/23/2025 FINDINGS: Endotracheal tube tip now measures 4.5 cm proximal to the calos. Enteric tube traverses in the midline with tip and side port projecting over the left upper abdomen. Right chest port tip terminates near the expected location of the right atrium, unchanged. Nonobstructive appearance of the visualized bowel gas. Linear atelectasis or scarring at the left lung base.. Degenerative changes of the spine with leftward curvature of the lumbar spine. RAD/Abdomen Single View IMPRESSION: Tubes and lines positioned as detailed above. No acute cardiopulmonary abnorma lity. Reading Location: [facility]
[2025-02-23] MEDS: Famotidine 200 MG/20 ML MDV 20 MG in 0.9% Normal Saline (Pres. free 8 ML 300 MG IV (22:04)
[2025-02-23] MEDS: Chlorhexidine 15 ML PO (22:05)
[2025-02-24] VITALS (20 sets, daily range): BP systolic 94–145; BP diastolic 68–94; PULSE 57–97; RESP 14–20; TEMP 35.6–37.6; O2SAT 93–100; BMI 25.7
[2025-02-24] MEDS: Propofol 10MG/Ml 1,000 MG/100 ML Bottle 9.8 MG CONT INF (01:00)
[2025-02-24] MEDS: fentaNYL drip 100 ML 7.5 MCG CONT INF (01:58)
[2025-02-24 03:47] LABS: Absolute Lymphocyte Count 0.53 X10^3/uL (0.83-4.51); Absolute Neutrophil Count 7.2 X10^3/uL (2.0-7.7); Basophil# 0.01 X10^3/uL; Basophil% 0.1 % (0-1); Hematocrit 30.1 % (40-54); Hemoglobin 10.3 g/dL (13.0-16.5); Lymphocyte # 0.53 X10^3/ul (0.83-4.51); Lymphocyte % 6.8 % (19-41); Mean Corp Hgb Conc 34.2 g/dL (32-36); Mean Corpuscular Hgb 32.1 pg (27.0-32.0); Mean Corpuscular Volume 93.8 fL (80-94); Mean Platelet Vol. 8.5 fl (6.2-12.0); Monocyte# 0.06 X10^3/uL; Monocyte% 0.8 % (0-10); NRBC Flagged by Analyzer 0 % (0-5); Neutrophil # 7.19 X10^3/uL (2.7-7.7); Neutrophil % 91.8 % (47-70); POSITIVE DIFFERENTIAL YES; Platelet Count 479 K/mm3 (150-450); RBC Distribution Width CV 16.9 % (11.6-14.6); RBC Distribution Width SD 58.5 fl (35.1-43.9); Red Blood Count 3.21 M/mm3 (4.6-6.2); White Blood Count 7.8 K/mm3 (4.4-11.0)
[2025-02-24 04:11] LABS: Anion Gap 11 (5-15); BUN 20 mg/dL (4-19); BUN/Creat Ratio 24.9 RATIO (10-20); Calcium,Total 8.3 mg/dL (7.6-11.0); Carbon Dioxide 22.7 mmol/L (21.0-32.0); Chloride 106 mmol/L (98-108); Creatinine, Serum 0.81 mg/dL (0.70-1.20); EST Glomerular Filtration Rate 99 (>60); Estimated Creatinine Clearance 95.13 ml/min (50-250); Glucose 172 mg/dL (70-99); Sodium Level 140 mmol/L (133-145)
--- NOTE | 2025-02-24 05:25 | RAD_ITS ---
PROCEDURE: CHEST 1 VIEW (PORTABLE) 02/24/2025 REASON FOR EXAM: ETT VALIDATION TECHNIQUE: Frontal view of the chest. COMPARISON: 02/23/2025 FINDINGS: Endotracheal tube 3 cm above the calos. Right port again noted. Nasogastric tube again below the diaphragm and extends off the inferior edge of the film. Lungs and cardiac silhouette are not significantly changed. Mild appearing right shoulder osteoarthrosis again noted. RAD/Chest 1 View (Portable) IMPRESSION: Endotracheal tube 3 cm above the calos. Right port again noted. Nasogastric tube again below the diaphragm and extends off the inferior edge of the film. Reading Location: [id number]
[2025-02-24 05:43] LABS: Allen Test Positive; Base Excess 3 mmol/L (-2 to +2); Bicarbonate 26.4 mmol/L (22-26); Blood Gas Specimen Type ART; Mode AC; O2 Delivery Device ET Tube; PEEP 5; PO2 52 mmHG (75-100); RR 14; SITE R Radial; SO2 89 % (95-99); Total Carbon Dioxide 27 mmol/L; pCO2 35.1 mmHg (35-45); pH 7.48 (7.35-7.45)
[2025-02-24] MEDS: Lactated Ringers 1,000 ML 60 ML IV (08:51)
--- NOTE | 2025-02-24 09:45 | CASEMGMT ---
AVA HANNON Assessment Face to Face with patient for initial transition planning/care coordination assessment. AVA HANNON introduced self and role at [facility], pt voices understanding. Pt is A&Ox4 and is resting comfortably in bed and is calm. Care providers, pharmacy, and demographics verified. Admitting dx: Angioedema. Pt was recently extubated. LACE Strata: 2 PCP: Faheem Mcbride Specialists: Rajinder ([facility]), Sam (Hematology - [place]) Preferred Pharmacy: [facility] Insurance: [employer], [employer], [facility] [place] Prescription Benefit: yes LNOK: Bebe Wagner (W) Living Arrangements: Pt lives with his in a single story home with 3 steps to enter ADLs/IADLs: Independent. 6-Click score is 24. Transportation: Self, . denies concerns DME: [employer]. Denies all other DME uses or needs HHC/SNF: Denies hx or needs Pt?s goal: Home Plan: Home with pt's , anticipate no additional needs at this time. Pt states that he also has plenty of family that lives close for additional support if needed. Pt states that he feels safe returning home with his once he is medically ready and denies further questions, concerns, or needs at this time. Ozzy Martínez RN, CM
[2025-02-24] MEDS: 0.9% Saline Lock 10 ML Syringe IV ×2 (10:12→14:58)
[2025-02-24] MEDS: DiphenhydrAMINE 50 MG/ML Syringe 25 MG IV (10:12)
[2025-02-24] MEDS: Enoxaparin 40 MG/0.4 ML Syringe SC (10:13)
[2025-02-24] MEDS: Famotidine 200 MG/20 ML MDV 20 MG in 0.9% Normal Saline (Pres. free 8 ML 300 MG IV (10:13)
--- NOTE | 2025-02-24 10:20 | PCM.PN.TICU ---
Objective Data Objective Data Vital Signs: Vital Signs Last response Temperature 35.9 C L 02/24/25 06:00 Temperature Source Core 02/24/25 06:00 Pulse Rate 76 02/24/25 07:19 Respiratory Rate 18 02/24/25 07:19 Respiratory Effort Mechanically Ventilated 02/24/25 06:00 Respiratory Depth Normal 02/24/25 06:00 Respiratory Pattern Normal 02/24/25 07:19 Blood Pressure 111/79 02/24/25 07:00 Blood Pressure Mean 89 02/24/25 07:00 Blood Pressure Source Monitor 02/24/25 07:00 Blood Pressure Position Semi-Fowlers 02/24/25 07:00 Blood Pressure Location Left Arm 02/24/25 07:00 Pulse Ox 99 02/24/25 07:19 Oxygen Delivery Method Mechanical Ventilator 02/24/25 07:00 Fraction of Inspired Oxygen (FIO2) 30 02/24/25 07:19 I&O: I&O Last 24 Hours 02/23/25 02/23/25 02/24/25 11:59 23:59 11:59 Intake Total 1178.33 / 1186.98 1117.99 / 1117.99 Output Total 400 / 400 200 / 200 Balance 778.33 / 786.98 917.99 / 917.99 I&O: Total Stay 02/23/25 11:22 thru 02/24/25 09:39 Intake Total 2296.32 Output Total 600 Balance 1696.32 Current Meds Ordered / Administered: Current meds ordered / Administered Generic Name Dose Route Start Last Admin Trade Name Freq PRN Reason Stop Dose Admin Albuterol Sulfate 2.5 mg 02/23/25 16:45 Albuterol 2.5 Mg/3 Ml Vial.Neb. INHALATION Q2H PRN PRN SOB &/OR WHEEZING Chlorhexidine Gluconate 15 ml 02/23/25 22:00 02/24/25 10:13 Chlorhexidine 15 Ml PO Not Given BID MADIHA Diphenhydramine HCl 25 mg 02/23/25 22:00 02/24/25 10:12 Diphenhydramine 50 Mg/Ml Syringe IV 25 mg Q12 MADIHA Administration Enoxaparin Sodium 40 mg 02/24/25 10:00 02/24/25 10:13 Enoxaparin 40 Mg/0.4 Ml Syringe SC 40 mg DAILY MADIHA Administration Famotidine 20 mg/ Sodium 10 mls @ 300 mls/hr 02/23/25 22:00 02/24/25 10:13 Chloride IV 300 mls/hr Q12 MADIHA Administration Methylprednisolone 40 mg 02/23/25 22:00 02/24/25 05:52 Methylprednisolone 40 Mg/Ml Vial IV 40 mg Q8 MADIHA Administration Senna/Docusate Sodium 2 tablet 02/23/25 16:47 Senna/Docusate Sodium 1 Tablet GT BID PRN PRN Constipation Sodium Chloride 10 - 40 ml 02/23/25 18:27 02/24/25 10:12 0.9% Saline Lock 10 Ml Syringe IV 20 ml UD PRN Administration Port-a-Cath (VAD)/R Port Flush Sodium Chloride 10 - 40 ml 02/23/25 18:27 0.9 % Nacl (Sterile) Posiflush 10 Ml IV UD PRN Port access or dressing change Sodium Chloride 10 - 40 ml 02/23/25 18:27 0.9% Saline Lock 10 Ml Syringe IV UD PRN SALINE FLUSH Lab / Micro Data 02/24/25 03:20 02/24/25 03:20 Labs: Laboratory Results - last 24 hr 02/23/25 11:26: WBC 7.1, RBC 3.73 L, Hgb 11.7 L, Hct 34.7 L, MCV 93.0, MCH 31.4, MCHC 33.7, RDW Std Deviation 58.8 H, RDW Coeff of Megan 17.1 H, Plt Count 596 H, MPV 8.7, Immature Gran % (Auto) 0.700, Neut % (Auto) 71.2 H, Lymph % (Auto) 17.7 L, [place] % (Auto) 8.6, Eos % (Auto) 1.0, Baso % (Auto) 0.8, Absolute Neuts (auto) 5.0, Absolute Lymphs (auto) 1.25, Nucleated RBC % 0, Sodium 141, Potassium 3.8, Chloride 104, Carbon Dioxide 24.4, Anion Gap 12, BUN 13, Creatinine 0.84, Estim Creat Clear Calc 91.73, Est GFR (MDRD) Non-Af 97, BUN/Creatinine Ratio 15.6, Glucose 96, Calcium 9.3, Total Bilirubin 0.62, AST 49 H, ALT 74 H, Alkaline Phosphatase 87, Total Creatine Kinase 275 H, Total Protein 7.3, Albumin 3.6, Globulin 3.7, Albumin/Globulin Ratio 1.0, Triglycerides 82 02/24/25 03:20: WBC 7.8, RBC 3.21 L, Hgb 10.3 L, Hct 30.1 L, MCV 93.8, MCH 32.1 H, MCHC 34.2, RDW Std Deviation 58.5 H, RDW Coeff of Megan 16.9 H, Plt Count 479 H, MPV 8.5, Immature Gran % (Auto) 0.500, Neut % (Auto) 91.8 H, Lymph % (Auto) 6.8 L, [place] % (Auto) 0.8, Eos % (Auto) 0.0, Baso % (Auto) 0.1, Absolute Neuts (auto) 7.2, Absolute Lymphs (auto) 0.53 L, Nucleated RBC % 0, Sodium 140, Potassium 4.0, Chloride 106, Carbon Dioxide 22.7, Anion Gap 11, BUN 20 H, Creatinine 0.81, Estim Creat Clear Calc 95.13, Est GFR (MDRD) Non-Af 99, BUN/Creatinine Ratio 24.9 H, Glucose 172 H, Calcium 8.3 ABG Data ABG results: ABG 02/23/25 02/24/25 15:48 05:40 Specimen Type ART ART Sample Site R Brach R Radial pH 7.42 7.48 H Bicarbonate Actual 27.0 H 26.4 H Total CO2 28 27 Base Excess 3 H 3 H O2 Saturation 99 89 L O2 % 40.0 30.0 ABG pCO2 41.6 35.1 ABG pO2 120 H 52 L Xiang Test Positive Positive Respiration Rate 14 14 O2 Delivery Device Adult Vent ET Tube Vent Mode AC AC Tidal Volume 450.0 450.0 POC PEEP 5 5 Imaging Radiology Impression Chest X-Ray 02/23/25 14:40 IMPRESSION: The tip of the endotracheal tube is at 7.5 cm proximal the calos. Reading Location: [facility] Chest X-Ray 02/23/25 16:00 IMPRESSION: 1. Right central venous port good position. 2. Endotracheal tube not significantly changed remaining approximately 7.5 cm from calos. 3. No infiltrates seen. Reading [facility] Chest X-Ray 02/23/25 21:40 IMPRESSION: Tubes and lines positioned as detailed above. No acute cardiopulmonary abnormality. Reading Location: [id number] X-Ray 02/23/25 21:40 IMPRESSION: Tubes and lines positioned as detailed above. No acute cardiopulmonary abnormality. Reading Location: [id number] Chest X-Ray 02/24/25 05:25 IMPRESSION: Endotracheal tube 3 cm above the calos. Right port again noted. Nasogastric tube again below the diaphragm and extends off the inferior edge of the film. Reading Location: [facility] Assessment and Plan . Assessment and plan: 1. Angioedema: Presumed 2/2 MEEK. Better today. Continue steroids + H1/H2 blockade today. 2. Resp Failure: acute/hypoxemic. 2/2 Airway protection. Excellent cuff leak. Minimal swelling in tongue/posterior pharynx. Extubated to RA. 3. Dysphagia: speech to conduct swallow eval 4. FEN: Stop IVFs. Oral diet post swallow eval 5. Anemia: some decrease after hydration. Will follow 6. Colon Ca 7. Px: Lovenox Will sign off. Call with questions Aiden Izquierdo MD Critical Care Time: 50 minutes The entirety of this encounter was done via Telemedicine Physical Exam Narrative awake, NAD o/p: ETT in place, no tongue swelling, lips still swollen(better)--> ulceration on bottom lip CV: RRR Chest: CTA B Abd: soft, nt Ext: no c/e/c Skin: no rashes Subjective Subjective good cuff leak on exam. Placed on SBT and extubated
--- NOTE | 2025-02-24 15:12 | DCINST_ITS ---
Discharge Instructions Diet Discharge Diet: No restrictions DC O2, CPAP, BIPAP needs Home O2 Discharge instructions: No Dressing / Incision Discharge Activity: Return to Normal Activity Weight Bearing Status: Full weight bearing Follow Up Care Test Results: Test results from this visit will be discussed in further detail at your follow- up appointment, if applicable. Discharge Plan Admission Admit Date/Time: 02/23/25 15:53 Primary Reason for Your Visit: Angioedema Attending Provider: Harpal Rodriguez Primary Care Provider: Faheem Mcbride Consulting Providers: Raulito Weller; Isrrael Haq; Todd Palomo; Jean Claude Mcbride; Raj Ojeda; Gabe Horan; David Hartley; Sushma Romero; Aiden Izquierdo; Dinesh Roth; Carlito Kidd; Mona Weaver; Lori Davis; Ignacia Flores; Mayco Barnhart; Berny Dickerson; Rodrigue Felder; Sim Lombardi; Silvino Tolliver; Nina Rangel; Rob Murphy; Arsen Pepper; Brendan Pineda; Shahab Saxena; Kari Chi NP; Eleanor Munoz; Lucero Pineda Instructions Additional Instructions / Restrictions: I recommend that you take 25 mg of Benadryl ([id number]) 3 times a day for 2 days Discharge Orders/Prescriptions Prescriptions: New dexamethasone 4 mg tablet 4 mg PO BID Qty: 7 0RF Continued atorvastatin 20 mg tablet 20 mg PO QHS granisetron HCl 1 mg tablet 1 mg PO DAILY dexamethasone 0.5 mg/5 mL solution 1 mg PO Q12H amlodipine 10 mg tablet 10 mg PO QHS doxycycline hyclate 100 mg tablet 100 mg PO DAILY clindamycin phosphate 1 % gel 1 applic topical BID Discontinued lisinopril 10 mg tablet 10 mg PO DAILY potassium chloride 20 mEq tablet extended release 10 meq PO BID Referrals / Follow Up: Faheem Mcbride MD [Primary Care Provider] - See Referral Note (In 1 to 2 weeks- have him check your blood pressure) Disposition Disposition (needs filled in before D/C Order can be placed): Home, Self Care
--- NOTE | 2025-02-24 15:20 | DS.PCM_ITS ---
Providers Date of Admission: 02/23/25 Date of Discharge: 02/24/25 Primary Care Physician: Dr. Faheem Mcbride MD Consultations 02/23/25 16:45 Consult: Director Of Physician Practices / Pulmonary Medicine Routine Consulting Provider: [facility] Reason for Consult: Vent management, intubated 2/2 angioedema EMERGENT Consult: No MD Notified: Yes Date Notified: 02/23/25 Time Notified: 17:00 Method of Notification: Verbal Reason For Visit: angioedema Diagnosis Discharge Diagnosis (1) Angioedema: Status: Acute Code(s): T78.3XXA - Angioneurotic edema, initial encounter (2) Cancer of descending colon: Status: Acute Code(s): C18.6 - Malignant neoplasm of descending colon Plan 1. Angioedema suspected to be secondary to MEEK inhibitor usage #2 metastatic colon cancer #3 essential hypertension Medications at Discharge Home Medications amlodipine 10 mg tablet 10 mg PO QHS 02/23/25 atorvastatin 20 mg tablet 20 mg PO QHS 02/23/25 clindamycin phosphate 1 % topical gel 1 applic topical BID 02/23/25 dexamethasone 0.5 mg/5 mL oral solution 1 mg PO Q12H 02/23/25 doxycycline hyclate 100 mg tablet 100 mg PO DAILY 02/23/25 granisetron HCl 1 mg tablet 1 mg PO DAILY 02/23/25 dexamethasone 4 mg tablet 4 mg PO BID #7 tabs 02/24/25 Hospital Course Operations None Procedures None Summary of Care Provided Minutes Spent on Discharge: 31 Hospital Course: This 64-year-old white male was seen in the emergency room at [facility] with a chief complaint of sudden onset of lip swelling and tongue swelling, patient was on an MEEK inhibitor for blood pressure. Evaluation in the ER was concerning for airway compromise and so the patient was intubated, given IV Solu-Medrol and IV Pepcid and admitted to ICU. Patient was seen by teleneurology, he was extubated the following day without adverse effects. Patient was seen by speech therapy who felt the patient was safe for oral intake. On 02/24/2025, patient was seen and examined: On examination he appeared in good health and spirits. Vital signs as documented. Skin warm and dry and without overt rashes. Neck without JVD, neck was supple, upper lip area was swollen, trachea midline, thyroid was normal. Lungs clear bilaterally, normal air movement was noted. Heart exam notable for regular rhythm, normal sounds and absence of murmurs, rubs or gallops. Abdomen unremarkable and without evidence of organomegaly, masses, or abdominal aortic enlargement. Bowel sounds are present, abdomen is not distended. Extremities nonedematous, no cyanosis was noted, no clubbing was noted. Neuro: Cranial nerves II through XII are grossly intact, no focal motor deficits were noted, sensation to light touch and pinprick intact, motor exam 5/5 throughout. Psych: Patient is alert and oriented x3, he does not appear anxious or depressed, he does not appear agitated. Patient was discharged home in stable condition on 02/25/2025 Weight / BMI Weight Weight: 81.7 kg Body Mass Index (BMI) 25.7 ABG / Lab / Microbiology Data 02/24/25 03:20 02/24/25 03:20 Laboratory: Laboratory Results - last 24 hr 02/23/25 11:26: Total Creatine Kinase 275 H, Triglycerides 82 02/24/25 03:20: WBC 7.8, RBC 3.21 L, Hgb 10.3 L, Hct 30.1 L, MCV 93.8, MCH 32.1 H, MCHC 34.2, RDW Std Deviation 58.5 H, RDW Coeff of Megan 16.9 H, Plt Count 479 H , MPV 8.5, Immature Gran % (Auto) 0.500, Neut % (Auto) 91.8 H, Lymph % (Auto) 6.8 L, [place] % (Auto) 0.8, Eos % (Auto) 0.0, Baso % (Auto) 0.1, Absolute Neuts (auto) 7.2, Absolute Lymphs (auto) 0.53 L, Nucleated RBC % 0, Sodium 140, Potassium 4.0, Chloride 106, Carbon Dioxide 22.7, Anion Gap 11, BUN 20 H, Creatinine 0.81, Estim Creat Clear Calc 95.13, Est GFR (MDRD) Non-Af 99, B UN/Creatinine Ratio 24.9 H, Glucose 172 H, Calcium 8.3 ABG: ABG 02/23/25 02/24/25 15:48 05:40 Specimen Type ART ART Sample Site R Brach R Radial pH 7.42 7.48 H Bicarbonate Actual 27.0 H 26.4 H Total CO2 28 27 Base Excess 3 H 3 H O2 Saturation 99 89 L O2 % 40.0 30.0 ABG pCO2 41.6 35.1 ABG pO2 120 H 52 L Xiang Test Positive Positive Respiration Rate 14 14 O2 Delivery Device Adult Vent ET Tube Vent Mode AC AC Tidal Volume 450.0 450.0 POC PEEP 5 5 Radiography Diagnostic Testing: Radiology Impression Chest X-Ray 02/23/25 16:00 IMPRESSION: 1. Right central venous port good position. 2. Endotracheal tube not significantly changed remaining approximately 7.5 cm from calos. 3. No infiltrates seen. [facility] Chest X-Ray 02/23/25 21:40 IMPRESSION: Tubes and lines positioned as detailed above. No acute cardiopulmonary abnormality. Reading Location: [id number] X-Ray 02/23/25 21:40 IMPRESSION: Tubes and lines positioned as detailed above. No acute cardiopulmonary abnormality. Reading Location: [id number] Chest X-Ray 02/24/25 05:25 IMPRESSION: Endotracheal tube 3 cm above the calos. Right port again noted. Nasogastric tube again below the diaphragm and extends off the inferior edge of the film. Reading Location: [id number] D/C Instructions Discharge Diet: No restrictions Weight Bearing Status: Full weight bearing DC O2, CPAP, BIPAP Needs Home O2 Discharge instructions: No Meaningful Use Info Meaningful Use Meaningful Use Diagnoses (Choose all that apply): None applicable Ischemic Stroke Statin Dosing Therapy Reference: STATIN DOSE THERAPY REFERENCE: * Patients > 75 years receive moderate or high dose statin therapy. * Patients 75 years or YOUNGER should receive HIGH intensity statin dose unless contraindicated. You will be required to document reason for non-treatment if statin daily dose does not meet guidelines. HIGH DOSE STATIN THERAPY DAILY Atorvastatin > than or = to 40 mg Rosuvastatin > than or = to 20 mg Amlodipine + Atorvastatin > than or = to 2.5/40 mg Ezetimibe + Simvastatin 10/80 mg Simvastatin 80mg Discharge Plan Admission Admit Date/Time: 02/23/25 15:53 Primary Reason for Your Visit: Angioedema Attending Provider: Harpal Rodriguez Primary Care Provider: Faheem Mcbride Consulting Providers: Raulito Weller; Isrrael Haq; Todd Palomo; Jean Claude Mcbride; Raj Ojeda; Gabe Horan; David Hartley; Sushma Romero; Aiden Izquierdo; Dinesh Roth; Carlito Kidd; Mona Weaver; Lori Davis; Flores,Ignacia; Bronwyn,Mayco; Irukulla,Berny; Emerita,Rodrigue; Sim Lombardi; Silvino Tolliver; Nina Rangel; Rob Murphy; Arsen Pepper; Brendan Pineda; Shahab Saxena; Kari Chi NP; Eleanor Munoz; Lucero Pineda Instructions Additional Instructions / Restrictions: I recommend that you take 25 mg of Benadryl ([id number]) 3 times a day for 2 days Discharge Orders/Prescriptions Prescriptions: New dexamethasone 4 mg tablet 4 mg PO BID Qty: 7 0RF Continued atorvastatin 20 mg tablet 20 mg PO QHS granisetron HCl 1 mg tablet 1 mg PO DAILY dexamethasone 0.5 mg/5 mL solution 1 mg PO Q12H amlodipine 10 mg tablet 10 mg PO QHS doxycycline hyclate 100 mg tablet 100 mg PO DAILY clindamycin phosphate 1 % gel 1 applic topical BID Discontinued lisinopril 10 mg tablet 10 mg PO DAILY potassium chloride 20 mEq tablet extended release 10 meq PO BID Referrals / Follow Up: Faheem Mcbride MD [Primary Care Provider] - See Referral Note (In 1 to 2 weeks- have him check your blood pressure) Disposition Disposition (needs filled in before D/C Order can be placed): Home, Self Care Charges/Coding Visit Charges Inpatient E&M: 37246 Disch Hosp >30min
== END 2025-02-24 15:48 | disposition home or self-care (01) | DRG 915 ==
LOC: ED 15:14 → ICU 15:38
PROVIDERS: Admitting Provider Internal Medicine; Emergency Provider Emergency Medicine; PCP Family Medicine; Referring Provider Internal Medicine; Visit Provider Internal Medicine
DX: T78.3XXA Angioneurotic edema, initial encounter (principal); J96.01 Acute respiratory failure with hypoxia; C18.6 Malignant neoplasm of descending colon; D64.9 Anemia, unspecified; E78.00 Pure hypercholesterolemia, unspecified; R13.10 Dysphagia, unspecified; I10 Essential (primary) hypertension; T46.4X5A Adverse effect of angiotensin-converting-enzyme inhibitors, initial encounter; Z79.899 Other long term (current) drug therapy; Z90.49 Acquired absence of other specified parts of digestive tract
CPT/HCPCS: 31500; 36591; 36600; 51702; 71045; 74018; 80048; 80053; 82550; 82803; 84478; 85025; 92610; 94002; 94003; 97802; 99252; 99284; A4216; G0463